=== PATIENT | male | born 1980 | race Caucasian/White ===

== ENCOUNTER 2017-02-10 13:26 | Inpatient (IN) | payer OTHER ==
[2017-02-10 18:24] VITALS: BMI 31.6
--- NOTE | 2017-02-10 20:26 | HP ---
CIWA Score - CIWA Score Nausea/Vomitin-Mild Nausea/No Vomiting Muscle Tremors: 3 Anxiety: 4-Mod. Anxious/Guarded Agitation: 4-Moderately Restless Paroxysmal Sweats: 3 Orientation: 1-Uncertain about Date Tacttile Disturbances: 0-None Auditory Disturbances: 2-Mild Harshness/Frighten Visual Disturbances: 2-Mild Sensitivity Headache: 3-Moderate CIWA-Ar Total Score: 23 Admission ROS BHS - HPI Chief Complaint: C/O WITHDRAWAL SX'S;SEEKING DETOX TXMENT Allergies/Adverse Reactions: Allergies Allergy/AdvReac Type Severity Reaction Status Date / Time No Known Allergies Allergy Verified 02/10/17 19:53 History of Present Illness: 36 Y.O. MALE WITH ALCOHOLISM AND COCAINE DEPENDENCE HERE FOR DETOX TXMNET. THIS IS CLIENTS FIRST TIME HERE. DENIES RECENT DETOX/ REHAB SERVICES.DENIES ANY SIGNIFICANT CLEAN TIME Exam Limitations: No Limitations - Ebola screening Have you traveled outside of the country in the last 21 days: No Have you had contact with anyone from an Ebola affected area: No Have you been sick,other than usual withdrawal symptoms: No Do you have a fever: No - Review of Systems Constitutional: Chills, Loss of Appetite, Night Sweats, Changes in sleep EENT: reports: Dental Problems (DENTAL CARIIES) Respiratory: reports: Shortness of Breath, Other (H/O ASTHMA) Cardiac: reports: No Symptoms Reported GI: reports: Diarrhea, Nausea : reports: Other (HESITANCY) Musculoskeletal: reports: Neck Pain Integumentary: reports: No Symptoms Reported Neuro: reports: No Symptoms reported Endocrine: reports: No Symptoms Reported Hematology: reports: No Symptoms Reported Psychiatric: reports: Anxious Other Systems: Reviewed and Negative Patient History - Patient Medical History Hx Asthma: Yes (ADVAIR) Hx Chronic Obstructive Pulmonary Disease (COPD): No Hx Cancer: No Hx Cardiac Disorders: No Hx Congestive Heart Failure: No Hx Hypertension: No Hx Hypercholesterolemia: No Hx Pacemaker: No HX Cerebrovascular Accident: No Hx Seizures: No Hx Dementia: No Hx Diabetes: No Hx Gastrointestinal Disorders: No Hx Liver Disease: No Hx Genitourinary Disorders: No Hx Sexually Transmitted Disorders: No Hx Renal Disease (ESRD): No Hx Thyroid Disease: No Hx Human Immunodeficiency Virus (HIV): No Hx Hepatitis C: No Hx Depression: No Hx Suicide Attempt: No Hx Bipolar Disorder: No Hx Schizophrenia: No Other Medical History: DENIES - Patient Surgical History Past Surgical History: No Hx Neurologic Surgery: No Hx Cataract Extraction: No Hx Cardiac Surgery: No Hx Lung Surgery: No Hx Breast Surgery: No Hx Breast Biopsy: No Hx Abdominal Surgery: No Hx Appendectomy: No Hx Cholecystectomy: No Hx Genitourinary Surgery: No Hx Section: No Hx Orthopedic Surgery: No Anesthesia Reaction: No - PPD History Previous Implant?: Yes Documented Results: Negative w/o proof PPD to be Administered?: Yes - Smoking Cessation Smoking history: Current every day smoker Have you smoked in the past 12 months: Yes Aproximately how many cigarettes per day: 20 Hx Chewing Tobacco Use: No Initiated information on smoking cessation: Yes 'Breaking Loose' booklet given: 02/10/17 - Substance & Tx. History Hx Alcohol Use: Yes Hx Substance Use: Yes Substance Use Type: Alcohol, Cocaine Hx Substance Use Treatment: Yes ([facility]) - Substances Abused Alcohol Route: Oral Frequency: Daily Amount used: LIQUOR- 1 PINT, BEER- 2 SIX PACKS Age of first use: 16 Date of Last Use: 02/09/17 COCAINE Route: Inhalation Frequency: 1-2 times per week Amount used: 2 BAGS Age of first use: 29 Date of Last Use: 02/09/17 Family Disease History - Family Disease History Family Disease History: Other: Mother (ALCOHOLISM) Admission Physical Exam S - Vital Signs Vital Signs: Vital Signs - 24 hr 02/10/17 18:23 Temperature 98.2 F Pulse Rate 98 H Respiratory 20 Rate Blood Pressure 115/68 - Physical General Appearance: Yes: Disheveled, Mild Distress, Tremorous, Anxious, Other ( MALODUROUS CLIENT NOTED WITH LARGE BREAST. DENIES IMPLANTS, HORMONE THERAPY, TRANSGENDER. STATES HE IS IDENTIFIES A MALE) HEENTM: Yes: EOMI, Normocephalic, LOR, Pharynx Normal, Nasal Congestion Respiratory: Yes: Chest Non-Tender, Lungs Clear, Normal Breath Sounds, No Respiratory Distress, No Accessory Muscle Use Neck: Yes: No masses,lesions,Nodules, Supple, Trachea in good position Breast: Yes: Breast Exam Deferred Cardiology: Yes: Regular Rhythm, Regular Rate, S1, S2 Abdominal: Yes: Normal Bowel Sounds, Non Tender, Soft Genitourinary: Yes: Within Normal Limits Back: Yes: Within Normal Limits Musculoskeletal: Yes: full range of Motion, Gait Steady Extremities: Yes: Normal Capillary Refill, Normal Range of Motion, Non-Tender, Tremors Neurological: Yes: Alert, Motor Strength 5/5 Integumentary: Yes: Normal Color, Warm, Moist Lymphatic: Yes: Within Normal Limits - Diagnostic (1) Asthma Current Visit: Yes Status: Chronic Qualifiers: Asthma severity: mild intermittent Asthma complication type: uncomplicated Qualified Code(s): J45.20 - Mild intermittent asthma, uncomplicated (2) Nicotine dependence Current Visit: Yes Status: Chronic Qualifiers: Nicotine product type: cigarettes Substance use status: uncomplicated Qualified Code(s): F17.210 - Nicotine dependence, cigarettes, uncomplicated (3) Alcohol dependence with uncomplicated withdrawal Current Visit: Yes Status: Chronic (4) Cocaine dependence, uncomplicated Current Visit: Yes Status: Chronic Cleared for Admission [facility] - Detox or Rehab [facility] Level of Care: Medically Managed Detox Regimen/Protocol: Librium [facility] Breath Alcohol Content Breath Alcohol Content: 0 Urine Drug Screen - Results Drug Screen Negative: No Urine Drug Screen Results: JOSE-Cocaine
[2017-02-10] MEDS ORDERED: IBUPROFEN 400 MG TABLET (FP) PO PRN (20:36)
[2017-02-10] MEDS ORDERED: LOPERAMIDE HCL 2 MG CAPSULE PO PRN (20:36)
[2017-02-10] MEDS ORDERED: hydrOXYzine PAMOATE 50 MG CAPSULE (FP) PO PRN (20:36)
[2017-02-10] MEDS ORDERED: MENTHOL/PHENOL 1 EACH UD MM PRN (20:36)
[2017-02-10] MEDS ORDERED: P-EPHED 60MG/TRIPROLIDI 2.5MG TABLET PO PRN (20:36)
[2017-02-10] MEDS ORDERED: ACETAMINOPHEN 325 MG TABLET (FP) PO PRN (20:36)
[2017-02-10] MEDS ORDERED: guaiFENesin/D-METHORPHAN HB 10 ML UNIT-DOSE CUPS PO PRN (20:36)
[2017-02-10] MEDS ORDERED: MAGNESIUM HYDROX 2400MG/30ML ORAL SUSPENSION 30 ML CUP PO PRN (20:36)
[2017-02-10] MEDS ORDERED: MAGNESIUM CITRATE 300 ML BOTTLE PO PRN (20:36)
[2017-02-10] MEDS ORDERED: NICOTINE POLACRILEX 2 MG GUM BC PRN (20:36)
[2017-02-10] MEDS ORDERED: chlordiazePOXIDE HCL 25 MG CAPSULE PO PRN (20:36)
[2017-02-10] MEDS ORDERED: diphenhydrAMINE HCL 50 MG CAPSULE PO PRN (20:36)
[2017-02-10] MEDS ORDERED: MAG HYDROX/AL HYDROX/SIMETH 30 ML UNIT-DOSE CUP PO PRN (20:36)
[2017-02-10] MEDS ORDERED: ALBUTEROL SO4 2.5/IPRATROPIUM 0.5 INH SOL 3 ML VIAL.NEB. NEB PRN (20:37)
[2017-02-10] MEDS: chlordiazePOXIDE HCL 25 MG CAPSULE PO SCH (22:03)
[2017-02-10] MEDS: THIAMINE HCL 100 MG TABLET (FP) PO SCH (22:54)
[2017-02-10] MEDS: NICOTINE 21 MG/24 HOURS TOPICAL PATCH TD SCH (22:56)
[2017-02-11] MEDS: chlordiazePOXIDE HCL 25 MG CAPSULE PO SCH ×4 (07:05→23:16)
[2017-02-11 10:13] LABS: MCHC 32.9 g/dl (32.0-35.9); MEAN CELL VOLUME 91.1 fl (80-96); MEAN PLT VOLUME 10.9 fl (7.5-11.1); PLATELET COUNT 198 K/MM3 (134-434); RDW 12.6 % (11.9-15.9); WHITE BLOOD COUNT 8.6 K/mm3 (4.0-10.0)
[2017-02-11 10:48] LABS: ALBUMIN 3.1 g/dl (3.4-5.0); ALK PHOS 51 U/L (45-117); ANION GAP 8 (8-16); BILIRUBIN,TOTAL 0.5 mg/dL (0.2-1.0); CALCIUM 8.2 mg/dL (8.5-10.1); CO2 26 mmol/L (21-32); COCKROFT - GAULT 159.62; GLUCOSE,RANDOM 123 mg/dL (74-106); SGOT/AST 14 U/L (15-37); SGPT/ALT 22 U/L (12-78); TOT PROT 5.9 g/dl (6.4-8.2)
--- NOTE | 2017-02-11 12:19 | EKG ---
Test Reason : Blood Pressure : / mmHG Vent. Rate : 083 BPM Atrial Rate : 083 BPM P-R Int : 168 ms QRS Dur : 078 ms QT Int : 358 ms P-R-T Axes : 069 062 068 degrees QTc Int : 420 ms NORMAL SINUS RHYTHM NORMAL ECG NO PREVIOUS ECGS AVAILABLE Confirmed by MD HUSSEIN, LISA ([id number]) on 02/11/2017 12:18:48 PM Referred By: Confirmed By:LISA SAVAGE MD
[2017-02-11] MEDS: PRENATAL VITAMINS W/ FOLIC ACID TABLET (FP) PO SCH (12:25)
[2017-02-11] MEDS: NICOTINE 21 MG/24 HOURS TOPICAL PATCH TD SCH (12:26)
--- NOTE | 2017-02-11 12:31 | PN ---
S CIWA - CIWA Score Nausea/Vomitin Muscle Tremors: 3 Anxiety: 3 Agitation: 3 Paroxysmal Sweats: 2 Orientation: 0-Oriented Tacttile Disturbances: 1-Very Mild Itch/Numbness Auditory Disturbances: 1-Very Mild Visual Disturbances: 1-Very Mild Sensitivity Headache: 2-Mild CIWA-Ar Total Score: 19 S Progress Note (SOAP) Subjective: ALERT,IRRITABLE,ANXIOUS,INTERRUPTED SLEEP,TREMOR,PAIN IN THE BODY AND BACK Objective: 02/11/17 12:29 Vital Signs Temperature 97.9 F 02/11/17 06:00 Pulse Rate 66 02/11/17 06:00 Respiratory Rate 18 02/11/17 06:00 Blood Pressure 104/60 02/11/17 06:00 O2 Sat by Pulse Oximetry (%) EKG NSR,NORMAL ECG Vital Signs Temperature 97.9 F 02/11/17 06:00 Pulse Rate 66 02/11/17 06:00 Respiratory Rate 18 02/11/17 06:00 Blood Pressure 104/60 02/11/17 06:00 O2 Sat by Pulse Oximetry (%) 02/11/17 12:30 Laboratory Last Values WBC 8.6 K/mm3 (4.0-10.0) 02/11/17 07:50 RBC 4.22 M/mm3 (4.00-5.60) 02/11/17 07:50 Hgb 12.7 GM/dL (11.7-16.9) 02/11/17 07:50 Hct 38.5 % (35.4-49) 02/11/17 07:50 MCV 91.1 fl (80-96) 02/11/17 07:50 MCHC 32.9 g/dl (32.0-35.9) 02/11/17 07:50 RDW 12.6 % (11.9-15.9) 02/11/17 07:50 Plt Count 198 K/MM3 (134-434) 02/11/17 07:50 MPV 10.9 fl (7.5-11.1) 02/11/17 07:50 Sodium 145 mmol/L (136-145) 02/11/17 08:50 Potassium 4.0 mmol/L (3.5-5.1) 02/11/17 08:50 Chloride 111 mmol/L (98-107) H 02/11/17 08:50 Carbon Dioxide 26 mmol/L (21-32) 02/11/17 08:50 Anion Gap 8 (8-16) 02/11/17 08:50 BUN 19 mg/dL (7-18) H 02/11/17 08:50 Creatinine 1.0 mg/dL (0.7-1.3) 02/11/17 08:50 Creat Clearance w eGFR > 60 (>60) 02/11/17 08:50 Random Glucose 123 mg/dL (74-106) H 02/11/17 08:50 Calcium 8.2 mg/dL (8.5-10.1) L 02/11/17 08:50 Total Bilirubin 0.5 mg/dL (0.2-1.0) 02/11/17 08:50 AST 14 U/L (15-37) L 02/11/17 08:50 ALT 22 U/L (12-78) 02/11/17 08:50 Alkaline Phosphatase 51 U/L (45-117) 02/11/17 08:50 Total Protein 5.9 g/dl (6.4-8.2) L 02/11/17 08:50 Albumin 3.1 g/dl (3.4-5.0) L 02/11/17 08:50 RPR Titer Nonreactive (NONREACTIVE) 02/11/17 07:50 Assessment: 02/11/17 12:30 WITHDRAWAL SYMPTOM Plan: CONTINUE DETOX,FASTING BLOOD GLUCOSE IN AM
[2017-02-11] MEDS: THIAMINE HCL 100 MG TABLET (FP) PO SCH (23:16)
[2017-02-12] MEDS: chlordiazePOXIDE HCL 25 MG CAPSULE PO SCH ×3 (07:04→18:46)
[2017-02-12 10:21] LABS: URINE APPEARANCE CLEAR; URINE BILIRUBIN NEGATIVE (NEGATIVE); URINE BLOOD NEGATIVE (NEGATIVE); URINE COLOR STRAW; URINE GLUCOSE (UA) 2+ (NEGATIVE); URINE KETONE NEGATIVE (NEGATIVE); URINE LEUK ESTERASE NEGATIVE (NEGATIVE); URINE NITRITE NEGATIVE (NEGATIVE); URINE PROTEIN NEGATIVE (NEGATIVE); URINE UROBILINOGEN NEGATIVE E.U./dl (0.2-1.0)
[2017-02-12] MEDS: NICOTINE 21 MG/24 HOURS TOPICAL PATCH TD SCH (11:13)
[2017-02-12] MEDS: PRENATAL VITAMINS W/ FOLIC ACID TABLET (FP) PO SCH (11:14)
[2017-02-12 11:28] LABS: HIV 1 & 2 AB NEGATIVE; HIV 1 AGp24 NEGATIVE
--- NOTE | 2017-02-12 11:31 | PN ---
S CIWA - CIWA Score Nausea/Vomitin Muscle Tremors: 3 Anxiety: 2 Agitation: 2 Paroxysmal Sweats: 1-Minimal Palms Moist Orientation: 0-Oriented Tacttile Disturbances: 1-Very Mild Itch/Numbness Auditory Disturbances: 1-Very Mild Visual Disturbances: 1-Very Mild Sensitivity Headache: 2-Mild CIWA-Ar Total Score: 16 S Progress Note (SOAP) Subjective: ALERT,IRRITABLE,ANXIOUS,INTERRUPTED SLEEP,TREMOR Objective: 02/12/17 11:29 Vital Signs Temperature 97.9 F 02/12/17 09:36 Pulse Rate 69 02/12/17 09:36 Respiratory Rate 18 02/12/17 09:36 Blood Pressure 131/76 02/12/17 09:36 O2 Sat by Pulse Oximetry (%) 02/12/17 11:30 Laboratory Last Values WBC 8.6 K/mm3 (4.0-10.0) 02/11/17 07:50 RBC 4.22 M/mm3 (4.00-5.60) 02/11/17 07:50 Hgb 12.7 GM/dL (11.7-16.9) 02/11/17 07:50 Hct 38.5 % (35.4-49) 02/11/17 07:50 MCV 91.1 fl (80-96) 02/11/17 07:50 MCHC 32.9 g/dl (32.0-35.9) 02/11/17 07:50 RDW 12.6 % (11.9-15.9) 02/11/17 07:50 Plt Count 198 K/MM3 (134-434) 02/11/17 07:50 MPV 10.9 fl (7.5-11.1) 02/11/17 07:50 Sodium 145 mmol/L (136-145) 02/11/17 08:50 Potassium 4.0 mmol/L (3.5-5.1) 02/11/17 08:50 Chloride 111 mmol/L (98-107) H 02/11/17 08:50 Carbon Dioxide 26 mmol/L (21-32) 02/11/17 08:50 Anion Gap 8 (8-16) 02/11/17 08:50 BUN 19 mg/dL (7-18) H 02/11/17 08:50 Creatinine 1.0 mg/dL (0.7-1.3) 02/11/17 08:50 Creat Clearance w eGFR > 60 (>60) 02/11/17 08:50 Random Glucose 123 mg/dL (74-106) H 02/11/17 08:50 Fasting Glucose 114 mg/dL (70-105) H 02/12/17 07:40 Calcium 8.2 mg/dL (8.5-10.1) L 02/11/17 08:50 Total Bilirubin 0.5 mg/dL (0.2-1.0) 02/11/17 08:50 AST 14 U/L (15-37) L 02/11/17 08:50 ALT 22 U/L (12-78) 02/11/17 08:50 Alkaline Phosphatase 51 U/L (45-117) 02/11/17 08:50 Total Protein 5.9 g/dl (6.4-8.2) L 02/11/17 08:50 Albumin 3.1 g/dl (3.4-5.0) L 02/11/17 08:50 Urine Color Straw 02/12/17 07:40 Urine Appearance Clear 02/12/17 07:40 Urine pH 6.0 (5.0-8.0) 02/12/17 07:40 Urine Protein Negative (NEGATIVE) 02/12/17 07:40 Urine Glucose (UA) 2+ (NEGATIVE) H 02/12/17 07:40 Urine Ketones Negative (NEGATIVE) 02/12/17 07:40 Urine Blood Negative (NEGATIVE) 02/12/17 07:40 Urine Nitrite Negative (NEGATIVE) 02/12/17 07:40 Urine Bilirubin Negative (NEGATIVE) 02/12/17 07:40 Urine Urobilinogen Negative E.U./dl (0.2-1.0) 02/12/17 07:40 Ur Leukocyte Esterase Negative (NEGATIVE) 02/12/17 07:40 RPR Titer Nonreactive (NONREACTIVE) 02/11/17 07:50 HIV 1&2 Antibody Screen Negative 02/12/17 07:40 HIV P24 Antigen Negative 02/12/17 07:40 Assessment: 02/12/17 11:30 WITHDRAWAL SYMPTOM Plan: CONTINUE DETOX
[2017-02-12] MEDS: THIAMINE HCL 100 MG TABLET (FP) PO SCH (22:41)
[2017-02-12] MEDS: chlordiazePOXIDE 5 MG CAPSULE PO SCH (22:43)
[2017-02-13] MEDS: chlordiazePOXIDE 5 MG CAPSULE PO SCH ×3 (06:30→17:39)
[2017-02-13] MEDS: NICOTINE 21 MG/24 HOURS TOPICAL PATCH TD SCH (10:16)
[2017-02-13] MEDS: PRENATAL VITAMINS W/ FOLIC ACID TABLET (FP) PO SCH (10:16)
--- NOTE | 2017-02-13 11:11 | PN ---
S Progress Note (SOAP) Subjective: ALERT,IRRITABLE,ANXIOUS,,INTERRUPTED SLEEP Objective: 02/13/17 11:09 Vital Signs Temperature 96.6 F L 02/13/17 09:53 Pulse Rate 70 02/13/17 09:53 Respiratory Rate 16 02/13/17 09:53 Blood Pressure 108/65 02/13/17 09:53 O2 Sat by Pulse Oximetry (%) 02/13/17 11:10 Laboratory Last Values WBC 8.6 K/mm3 (4.0-10.0) 02/11/17 07:50 RBC 4.22 M/mm3 (4.00-5.60) 02/11/17 07:50 Hgb 12.7 GM/dL (11.7-16.9) 02/11/17 07:50 Hct 38.5 % (35.4-49) 02/11/17 07:50 MCV 91.1 fl (80-96) 02/11/17 07:50 MCHC 32.9 g/dl (32.0-35.9) 02/11/17 07:50 RDW 12.6 % (11.9-15.9) 02/11/17 07:50 Plt Count 198 K/MM3 (134-434) 02/11/17 07:50 MPV 10.9 fl (7.5-11.1) 02/11/17 07:50 Sodium 145 mmol/L (136-145) 02/11/17 08:50 Potassium 4.0 mmol/L (3.5-5.1) 02/11/17 08:50 Chloride 111 mmol/L (98-107) H 02/11/17 08:50 Carbon Dioxide 26 mmol/L (21-32) 02/11/17 08:50 Anion Gap 8 (8-16) 02/11/17 08:50 BUN 19 mg/dL (7-18) H 02/11/17 08:50 Creatinine 1.0 mg/dL (0.7-1.3) 02/11/17 08:50 Creat Clearance w eGFR > 60 (>60) 02/11/17 08:50 Random Glucose 123 mg/dL (74-106) H 02/11/17 08:50 Fasting Glucose 114 mg/dL (70-105) H 02/12/17 07:40 Calcium 8.2 mg/dL (8.5-10.1) L 02/11/17 08:50 Total Bilirubin 0.5 mg/dL (0.2-1.0) 02/11/17 08:50 AST 14 U/L (15-37) L 02/11/17 08:50 ALT 22 U/L (12-78) 02/11/17 08:50 Alkaline Phosphatase 51 U/L (45-117) 02/11/17 08:50 Total Protein 5.9 g/dl (6.4-8.2) L 02/11/17 08:50 Albumin 3.1 g/dl (3.4-5.0) L 02/11/17 08:50 Urine Color Straw 02/12/17 07:40 Urine Appearance Clear 02/12/17 07:40 Urine pH 6.0 (5.0-8.0) 02/12/17 07:40 Ur Specific Era 1.015 (1.005-1.025) 02/12/17 07:40 Urine Protein Negative (NEGATIVE) 02/12/17 07:40 Urine Glucose (UA) 2+ (NEGATIVE) H 02/12/17 07:40 Urine Ketones Negative (NEGATIVE) 02/12/17 07:40 Urine Blood Negative (NEGATIVE) 02/12/17 07:40 Urine Nitrite Negative (NEGATIVE) 02/12/17 07:40 Urine Bilirubin Negative (NEGATIVE) 02/12/17 07:40 Urine Urobilinogen Negative E.U./dl (0.2-1.0) 02/12/17 07:40 Ur Leukocyte Esterase Negative (NEGATIVE) 02/12/17 07:40 RPR Titer Nonreactive (NONREACTIVE) 02/11/17 07:50 HIV 1&2 Antibody Screen Negative 02/12/17 07:40 HIV P24 Antigen Negative 02/12/17 07:40 Assessment: 02/13/17 11:10 WITHDRAWAL SYMPTOM Plan: CONTINUE DETOX
[2017-02-13] MEDS ORDERED: chlordiazePOXIDE 5 MG CAPSULE ONE (21:32)
[2017-02-13] MEDS: THIAMINE HCL 100 MG TABLET (FP) PO SCH (22:23)
[2017-02-13] MEDS: chlordiazePOXIDE HCL 10 MG CAPSULE PO SCH (22:23)
[2017-02-14] MEDS: chlordiazePOXIDE HCL 10 MG CAPSULE PO SCH (06:13)
--- NOTE | 2017-02-14 09:10 | PN ---
S Progress Note (SOAP) Subjective: ALERT,NO COMPLAINT Objective: 02/14/17 09:09 02/14/17 09:09 Vital Signs Temperature 95.9 F L 02/14/17 06:23 Pulse Rate 70 02/14/17 06:23 Respiratory Rate 18 02/14/17 06:23 Blood Pressure 95/56 02/14/17 06:23 O2 Sat by Pulse Oximetry (%) Assessment: 02/14/17 09:09 DETOX COMPLETED,NO WITHDRAWAL SYMPTOM Plan: DISCHARGE TODAY,FOLLOW UP WITH AFTER CARE PROGRAM ARRANGEMENT
--- NOTE | 2017-02-14 09:13 | DS ---
[facility] Detox Discharge Summary Admission Date: 02/10/17 Discharge Date: 02/14/17 - History Present History: Alcohol Dependence, Cocaine Dependence Additional Comments: FOLLOW UP WITH AFTER CARE PROGRAM ARRANGEMENT Pertinent Past History: ASTHMA NICOTINE DEPENDENCE - Physical Exam Results Vital Signs: Vital Signs Temperature 95.9 F L 02/14/17 06:23 Pulse Rate 70 02/14/17 06:23 Respiratory Rate 18 02/14/17 06:23 Blood Pressure 95/56 02/14/17 06:23 O2 Sat by Pulse Oximetry (%) Pertinent Admission Physical Exam Findings: WITHDRAWAL SYMPTOM - Treatment Hospital Course: Detox Protocol Followed, Detoxed Safely, Responded well, Discharged Condition Good, Rehab Referral Accepted Patient has Accepted a Rehab Referral to: [facility] - Medication Discharge Medications: Ambulatory Orders NK [No Known Home Medication] 02/10/17 - AMA Did Patient Leave Against Medical Advice: No
[2017-02-14] MEDS ORDERED: ALBUTEROL SO4 6.7 GM HFA INHALER IH PRN (09:14)
[2017-02-14] MEDS ORDERED: ALBUTEROL SO4 6.7 GM HFA INHALER IH ONE (09:57)
[2017-02-14 10:21] VITALS: BP 154/92; PULSE 76; TEMP 99.1
== END 2017-02-14 10:13 | disposition home or self-care (01) | DRG 774 ==
LOC: YASAS 13:26 → Y6N 19:37
PROVIDERS: ADMIT Internal Medicine; ATTEND Internal Medicine
PROC: HZ2ZZZZ Detoxification Services for Substance Abuse Treatment (ICD-10-PCS; principal; 2017-02-10)
DX: F10.230 Alcohol dependence with withdrawal, uncomplicated (principal); F14.20 Cocaine dependence, uncomplicated; F17.210 Nicotine dependence, cigarettes, uncomplicated; J45.20 Mild intermittent asthma, uncomplicated
CPT/HCPCS: 36415; 80053; 81003; 82947; 85027; 86593; 86803; 87389; 93005; 93010

== ENCOUNTER 2017-06-05 15:36 | Inpatient (IN) | payer OTHER ==
[2017-06-05 17:27] VITALS: BMI 31.0
--- NOTE | 2017-06-05 17:57 | HP ---
CIWA Score - CIWA Score Nausea/Vomitin-Mild Nausea/No Vomiting Muscle Tremors: 4-Moderate,w/Arms Extend Anxiety: 4-Mod. Anxious/Guarded Agitation: 4-Moderately Restless Paroxysmal Sweats: 1-Minimal Palms Moist Orientation: 0-Oriented Tacttile Disturbances: 0-None Auditory Disturbances: 0-None Visual Disturbances: 0-None Headache: 1-Very Mild CIWA-Ar Total Score: 15 Admission ROS BHS - HPI Chief Complaint: WITHDRAWAL SX Allergies/Adverse Reactions: Allergies Allergy/AdvReac Type Severity Reaction Status Date / Time No Known Allergies Allergy Verified 02/10/17 19:53 History of Present Illness: 37 YEARS OLD MALE WITH LONG HISTORY OF ALCOHOL COCAINE MARIJUANA NICOTINE DEPENDENCE ASTHMA DENIES MENTAL ILLNESS REFUSES DISCUSS PSYCHOLOGICAL ISSUE WITH PSYCHIATRIST IS ADMITTED TO DETOX LEFT 5TH TOE NAIL INJURY 05/31/17, TREATED AT [place] [facility] DISCHARGE WITH MOTRIN PRN, DENIES PAIN, "THEY GAVE ME A LITTLE BANDAGE. LEFT TOE NO SWELL, NO ERYTHEMA, AMBULATE STEADY GAIT, Exam Limitations: No Limitations - Ebola screening Have you traveled outside of the country in the last 21 days: No Have you had contact with anyone from an Ebola affected area: No Have you been sick,other than usual withdrawal symptoms: No Do you have a fever: No - Review of Systems Constitutional: Changes in sleep, Weight Stable EENT: reports: No Symptoms Reported Respiratory: reports: SOB with Exertion Cardiac: reports: No Symptoms Reported GI: reports: Nausea, Poor Fluid Intake, Indigestion, Abdominal cramping : reports: No Symptoms Reported Musculoskeletal: reports: No Symptoms Reported Integumentary: reports: No Symptoms Reported Neuro: reports: Tremors Endocrine: reports: No Symptoms Reported Hematology: reports: No Symptoms Reported Psychiatric: reports: Judgement Intact, Mood/Affect Appropiate, Orientated x3 Other Systems: Reviewed and Negative Patient History - Patient Medical History Hx Anemia: No Hx Asthma: Yes (ADVAIR) Hx Chronic Obstructive Pulmonary Disease (COPD): No Hx Cancer: No Hx Cardiac Disorders: No Hx Congestive Heart Failure: No Hx Hypertension: No Hx Hypercholesterolemia: No Hx Pacemaker: No HX Cerebrovascular Accident: No Hx Seizures: No Hx Dementia: No Hx Diabetes: No Hx Gastrointestinal Disorders: No Hx Liver Disease: No Hx Genitourinary Disorders: No Hx Sexually Transmitted Disorders: No Hx Renal Disease (ESRD): No Hx Thyroid Disease: No Hx Human Immunodeficiency Virus (HIV): No Hx Hepatitis C: No Hx Depression: No Hx Suicide Attempt: No Hx Bipolar Disorder: No Hx Schizophrenia: No - Patient Surgical History Past Surgical History: No Hx Neurologic Surgery: No Hx Cataract Extraction: No Hx Cardiac Surgery: No Hx Lung Surgery: No Hx Breast Surgery: No Hx Breast Biopsy: No Hx Abdominal Surgery: No Hx Appendectomy: No Hx Cholecystectomy: No Hx Genitourinary Surgery: No Hx Orthopedic Surgery: No - PPD History Previous Implant?: Yes Documented Results: Negative w/o proof Implanted On Prior R Admission?: Yes Date: 02/12/17 PPD to be Administered?: No - Smoking Cessation Smoking history: Current every day smoker Have you smoked in the past 12 months: Yes Aproximately how many cigarettes per day: 20 Cigars Per Day: 0 Hx Chewing Tobacco Use: No Initiated information on smoking cessation: Yes 'Breaking Loose' booklet given: 06/05/17 - Substance & Tx. History Hx Alcohol Use: Yes Hx Substance Use: Yes Substance Use Type: Alcohol, Cocaine, Marijuana Hx Substance Use Treatment: Yes (02/10/02/14/17 [facility] - Substances Abused Alcohol Route: Oral Frequency: Daily Amount used: VOLKA LIT Age of first use: 16 Date of Last Use: 06/05/17 Family Disease History - Family Disease History Family Disease History: Other: Mother (ALCOHOLISM) Admission Physical Exam BHS - Vital Signs Vital Signs: Vital Signs - 24 hr 06/05/17 17:21 Temperature 98.8 F Pulse Rate 74 Respiratory 20 Rate Blood Pressure 125/72 - Physical General Appearance: Yes: Appropriately Dressed, Mild Distress, Obese HEENTM: Yes: Hearing grossly Normal, Normal ENT Inspection, Normocephalic, Normal Voice Respiratory: Yes: Chest Non-Tender, No Respiratory Distress, No Accessory Muscle Use Neck: Yes: Supple, Trachea in good position Breast: Yes: Breasts Symetrical Cardiology: Yes: Regular Rhythm, Regular Rate, S1, S2 Abdominal: Yes: Non Tender, Soft Genitourinary: Yes: Within Normal Limits Back: Yes: Normal Inspection Musculoskeletal: Yes: full range of Motion, Gait Steady, Other (LEFT 5TH TOE S/ P NAIL INJURY TREATED AT [place]) Extremities: Yes: Non-Tender Neurological: Yes: Fully Oriented, Alert, Motor Strength 5/5, Normal Mood/Affect , Normal Response Integumentary: Yes: Warm, Other (REPORTS LEFT 5TH TOE NAIL INJURY 05/31/17, TREATED AT [place]) Lymphatic: Yes: Within Normal Limits - Diagnostic (1) Alcohol dependence with uncomplicated withdrawal Current Visit: Yes Status: Acute (2) Cocaine dependence, uncomplicated Current Visit: Yes Status: Chronic (3) Nicotine dependence Current Visit: Yes Status: Acute Qualifiers: Nicotine product type: cigarettes Substance use status: in withdrawal Qualified Code(s): F17.213 - Nicotine dependence, cigarettes, with withdrawal (4) Cannabis dependence, uncomplicated Current Visit: Yes Status: Chronic BHS Breath Alcohol Content Breath Alcohol Content: 0 Urine Drug Screen - Results Drug Screen Negative: No Urine Drug Screen Results: THC-Marijuana, JOSE-Cocaine
[2017-06-05] MEDS ORDERED: diphenhydrAMINE HCL 50 MG CAPSULE PO PRN (17:59)
[2017-06-05] MEDS ORDERED: chlordiazePOXIDE HCL 25 MG CAPSULE PO PRN (17:59)
[2017-06-05] MEDS ORDERED: hydrOXYzine PAMOATE 50 MG CAPSULE (FP) PO PRN (17:59)
[2017-06-05] MEDS ORDERED: MAG HYDROX/AL HYDROX/SIMETH 30 ML UNIT-DOSE CUP PO PRN (17:59)
[2017-06-05] MEDS ORDERED: MENTHOL/PHENOL 1 EACH UD MM PRN (17:59)
[2017-06-05] MEDS ORDERED: NICOTINE POLACRILEX 4 MG GUM BUC PRN (17:59)
[2017-06-05] MEDS ORDERED: MAGNESIUM HYDROX 2400MG/30ML ORAL SUSPENSION 30 ML CUP PO PRN (17:59)
[2017-06-05] MEDS ORDERED: MAGNESIUM CITRATE 300 ML BOTTLE PO PRN (17:59)
[2017-06-05] MEDS ORDERED: ACETAMINOPHEN 325 MG TABLET (FP) PO PRN (17:59)
[2017-06-05] MEDS ORDERED: P-EPHED 60MG/TRIPROLIDI 2.5MG TABLET PO PRN (17:59)
[2017-06-05] MEDS ORDERED: LOPERAMIDE HCL 2 MG CAPSULE PO PRN (17:59)
[2017-06-05] MEDS ORDERED: guaiFENesin/D-METHORPHAN HB 10 ML UNIT-DOSE CUPS PO PRN (17:59)
[2017-06-05] MEDS ORDERED: ALBUTEROL SO4 2.5/IPRATROPIUM 0.5 INH SOL 3 ML VIAL.NEB. NEB PRN (18:01)
[2017-06-05] MEDS ORDERED: ALBUTEROL SO4 6.7 GM HFA INHALER IH PRN (18:01)
[2017-06-05] MEDS: chlordiazePOXIDE HCL 25 MG CAPSULE PO SCH (22:31)
[2017-06-05] MEDS: RANITIDINE HCL 150 MG TABLET (FP) PO SCH (22:32)
[2017-06-05] MEDS: THIAMINE HCL 100 MG TABLET (FP) PO SCH (22:32)
[2017-06-05 23:13] LABS: PH,URINE 6.5 (5.0-8.0); URINE APPEARANCE CLEAR; URINE BILIRUBIN NEGATIVE (NEGATIVE); URINE BLOOD NEGATIVE (NEGATIVE); URINE COLOR YELLOW; URINE GLUCOSE (UA) NEGATIVE (NEGATIVE); URINE KETONE NEGATIVE (NEGATIVE); URINE NITRITE NEGATIVE (NEGATIVE); URINE PROTEIN NEGATIVE (NEGATIVE); URINE UROBILINOGEN >=8.0 E.U./dl mg/dL (0.2-1.0)
[2017-06-06] MEDS: chlordiazePOXIDE HCL 25 MG CAPSULE PO SCH ×4 (05:24→22:47)
[2017-06-06 09:49] LABS: MCH 28.5 pg (25.7-33.7); MCHC 32.2 g/dl (32.0-35.9); MEAN CELL VOLUME 88.5 fl (80-96); MEAN PLT VOLUME 11.2 fl (7.5-11.1); PLATELET COUNT 189 K/MM3 (134-434); WHITE BLOOD COUNT 9.4 K/mm3 (4.0-10.0)
[2017-06-06 10:08] LABS: ALBUMIN 3.2 g/dl (3.4-5.0); ALK PHOS 41 U/L (45-117); ANION GAP 7 (8-16); BILIRUBIN,TOTAL 0.4 mg/dL (0.2-1.0); CALCIUM 8.6 mg/dL (8.5-10.1); CO2 26 mmol/L (21-32); GLUCOSE,RANDOM 102 mg/dL (74-106); SGOT/AST 10 U/L (15-37); SGPT/ALT 28 U/L (12-78); TOT PROT 5.9 g/dl (6.4-8.2)
[2017-06-06] MEDS: NICOTINE 21 MG/24 HOURS TOPICAL PATCH TD SCH (10:52)
[2017-06-06] MEDS: PRENATAL VITAMINS W/ FOLIC ACID TABLET (FP) PO SCH (10:52)
[2017-06-06] MEDS: RANITIDINE HCL 150 MG TABLET (FP) PO SCH ×2 (10:52→22:47)
--- NOTE | 2017-06-06 11:53 | PN ---
[facility] CIWA - CIWA Score Nausea/Vomitin-No Nausea/No Vomiting Muscle Tremors: 4-Moderate,w/Arms Extend Anxiety: 4-Mod. Anxious/Guarded Agitation: 4-Moderately Restless Paroxysmal Sweats: 1-Minimal Palms Moist Orientation: 0-Oriented Tacttile Disturbances: 2-Mild Itch/Numbness/Burn Auditory Disturbances: 0-None Visual Disturbances: 0-None Headache: 0-None Present CIWA-Ar Total Score: 15 S Progress Note (SOAP) Subjective: ANXIETY,TREMORS, LACK OF APPETITE. Objective: 06/06/17 11:53 Vital Signs Temperature 96.8 F L 06/06/17 09:14 Pulse Rate 67 06/06/17 09:14 Respiratory Rate 18 06/06/17 09:14 Blood Pressure 124/82 06/06/17 09:14 O2 Sat by Pulse Oximetry (%) Laboratory Last Values WBC 9.4 K/mm3 (4.0-10.0) 06/06/17 07:00 RBC 4.64 M/mm3 (4.00-5.60) 06/06/17 07:00 Hgb 13.2 GM/dL (11.7-16.9) 06/06/17 07:00 Hct 41.1 % (35.4-49) 06/06/17 07:00 MCV 88.5 fl (80-96) 06/06/17 07:00 MCH 28.5 pg (25.7-33.7) 06/06/17 07:00 MCHC 32.2 g/dl (32.0-35.9) 06/06/17 07:00 RDW 13.0 % (11.9-15.9) 06/06/17 07:00 Plt Count 189 K/MM3 (134-434) 06/06/17 07:00 MPV 11.2 fl (7.5-11.1) H 06/06/17 07:00 Sodium 141 mmol/L (136-145) 06/06/17 07:00 Potassium 3.9 mmol/L (3.5-5.1) 06/06/17 07:00 Chloride 108 mmol/L (98-107) H 06/06/17 07:00 Carbon Dioxide 26 mmol/L (21-32) 06/06/17 07:00 Anion Gap 7 (8-16) L 06/06/17 07:00 BUN 22 mg/dL (7-18) H 06/06/17 07:00 Creatinine 1.0 mg/dL (0.7-1.3) 06/06/17 07:00 Creat Clearance w eGFR > 60 (>60) 06/06/17 07:00 Random Glucose 102 mg/dL (74-106) 06/06/17 07:00 Calcium 8.6 mg/dL (8.5-10.1) 06/06/17 07:00 Total Bilirubin 0.4 mg/dL (0.2-1.0) 06/06/17 07:00 AST 10 U/L (15-37) L D 06/06/17 07:00 ALT 28 U/L (12-78) D 06/06/17 07:00 Alkaline Phosphatase 41 U/L (45-117) L 06/06/17 07:00 Total Protein 5.9 g/dl (6.4-8.2) L 06/06/17 07:00 Albumin 3.2 g/dl (3.4-5.0) L 06/06/17 07:00 Urine Color Yellow 06/05/17 18:30 Urine Appearance Clear 06/05/17 18:30 Urine pH 6.5 (5.0-8.0) 06/05/17 18:30 Urine Protein Negative (NEGATIVE) 06/05/17 18:30 Urine Glucose (UA) Negative (NEGATIVE) 06/05/17 18:30 Urine Ketones Negative (NEGATIVE) 06/05/17 18:30 Urine Blood Negative (NEGATIVE) 06/05/17 18:30 Urine Nitrite Negative (NEGATIVE) 06/05/17 18:30 Urine Bilirubin Negative (NEGATIVE) 06/05/17 18:30 Urine Urobilinogen >=8.0 e.u./dl mg/dL (0.2-1.0) 06/05/17 18:30 RPR Titer Nonreactive (NONREACTIVE) 06/06/17 07:00 Assessment: 06/06/17 11:53 WITHDRAWAL SX Plan: CONTINUE DETOX
--- NOTE | 2017-06-06 13:02 | EKG ---
Test Reason : Blood Pressure : / mmHG Vent. Rate : 063 BPM Atrial Rate : 063 BPM P-R Int : 160 ms QRS Dur : 078 ms QT Int : 384 ms P-R-T Axes : 057 050 059 degrees QTc Int : 392 ms NORMAL SINUS RHYTHM WITH SINUS ARRHYTHMIA NORMAL ECG WHEN COMPARED WITH ECG OF 10-FEB-2017 21:15, NO SIGNIFICANT CHANGE WAS FOUND Confirmed by LIYAH ZAVALA MD ([id number]) on 06/06/2017 1:02:23 PM Referred By: Wojciech Blakely Confirmed By:LIYAH ZAVALA MD
[2017-06-06] MEDS: THIAMINE HCL 100 MG TABLET (FP) PO SCH (22:47)
[2017-06-07] MEDS: chlordiazePOXIDE HCL 25 MG CAPSULE PO SCH ×3 (05:31→17:07)
[2017-06-07] MEDS: PRENATAL VITAMINS W/ FOLIC ACID TABLET (FP) PO SCH (10:07)
[2017-06-07] MEDS: NICOTINE 21 MG/24 HOURS TOPICAL PATCH TD SCH (10:07)
[2017-06-07] MEDS: RANITIDINE HCL 150 MG TABLET (FP) PO SCH ×2 (10:07→22:18)
--- NOTE | 2017-06-07 11:06 | PN ---
[facility] CIWA - CIWA Score Nausea/Vomitin-No Nausea/No Vomiting Muscle Tremors: 4-Moderate,w/Arms Extend Anxiety: 4-Mod. Anxious/Guarded Agitation: 4-Moderately Restless Paroxysmal Sweats: 1-Minimal Palms Moist Orientation: 0-Oriented Tacttile Disturbances: 3-Moderate Itch/Numb/Burn Auditory Disturbances: 0-None Visual Disturbances: 0-None Headache: 0-None Present CIWA-Ar Total Score: 16 S Progress Note (SOAP) Subjective: DECREASE ANXIETY,SWEATS,TREMORS. ALERT O X 3, NAD. Objective: 06/07/17 11:06 Vital Signs Temperature 98.7 F 06/07/17 09:55 Pulse Rate 69 06/07/17 09:55 Respiratory Rate 20 06/07/17 09:55 Blood Pressure 132/78 06/07/17 09:55 O2 Sat by Pulse Oximetry (%) Laboratory Last Values WBC 9.4 K/mm3 (4.0-10.0) 06/06/17 07:00 RBC 4.64 M/mm3 (4.00-5.60) 06/06/17 07:00 Hgb 13.2 GM/dL (11.7-16.9) 06/06/17 07:00 Hct 41.1 % (35.4-49) 06/06/17 07:00 MCV 88.5 fl (80-96) 06/06/17 07:00 MCH 28.5 pg (25.7-33.7) 06/06/17 07:00 MCHC 32.2 g/dl (32.0-35.9) 06/06/17 07:00 RDW 13.0 % (11.9-15.9) 06/06/17 07:00 Plt Count 189 K/MM3 (134-434) 06/06/17 07:00 MPV 11.2 fl (7.5-11.1) H 06/06/17 07:00 Sodium 141 mmol/L (136-145) 06/06/17 07:00 Potassium 3.9 mmol/L (3.5-5.1) 06/06/17 07:00 Chloride 108 mmol/L (98-107) H 06/06/17 07:00 Carbon Dioxide 26 mmol/L (21-32) 06/06/17 07:00 Anion Gap 7 (8-16) L 06/06/17 07:00 BUN 22 mg/dL (7-18) H 06/06/17 07:00 Creatinine 1.0 mg/dL (0.7-1.3) 06/06/17 07:00 Creat Clearance w eGFR > 60 (>60) 06/06/17 07:00 Random Glucose 102 mg/dL (74-106) 06/06/17 07:00 Calcium 8.6 mg/dL (8.5-10.1) 06/06/17 07:00 Total Bilirubin 0.4 mg/dL (0.2-1.0) 06/06/17 07:00 AST 10 U/L (15-37) L D 06/06/17 07:00 ALT 28 U/L (12-78) D 06/06/17 07:00 Alkaline Phosphatase 41 U/L (45-117) L 06/06/17 07:00 Total Protein 5.9 g/dl (6.4-8.2) L 06/06/17 07:00 Albumin 3.2 g/dl (3.4-5.0) L 06/06/17 07:00 Urine Color Yellow 06/05/17 18:30 Urine Appearance Clear 06/05/17 18:30 Urine pH 6.5 (5.0-8.0) 06/05/17 18:30 Ur Specific [place] 1.025 (1.005-1.025) 06/05/17 18:30 Urine Protein Negative (NEGATIVE) 06/05/17 18:30 Urine Glucose (UA) Negative (NEGATIVE) 06/05/17 18:30 Urine Ketones Negative (NEGATIVE) 06/05/17 18:30 Urine Blood Negative (NEGATIVE) 06/05/17 18:30 Urine Nitrite Negative (NEGATIVE) 06/05/17 18:30 Urine Bilirubin Negative (NEGATIVE) 06/05/17 18:30 Urine Urobilinogen >=8.0 e.u./dl mg/dL (0.2-1.0) 06/05/17 18:30 RPR Titer Nonreactive (NONREACTIVE) 06/06/17 07:00 Assessment: 06/07/17 11:06 WITHDRAWAL SX Plan: CONTINUE DETOX
[2017-06-07] MEDS: chlordiazePOXIDE 5 MG CAPSULE PO SCH (22:18)
[2017-06-07] MEDS: THIAMINE HCL 100 MG TABLET (FP) PO SCH (22:18)
[2017-06-08] MEDS: chlordiazePOXIDE 5 MG CAPSULE PO SCH ×3 (05:29→17:18)
[2017-06-08] MEDS: PRENATAL VITAMINS W/ FOLIC ACID TABLET (FP) PO SCH (10:12)
[2017-06-08] MEDS: NICOTINE 21 MG/24 HOURS TOPICAL PATCH TD SCH (10:12)
[2017-06-08] MEDS: RANITIDINE HCL 150 MG TABLET (FP) PO SCH ×2 (10:12→22:14)
--- NOTE | 2017-06-08 11:02 | PN ---
[facility] Progress Note (SOAP) Subjective: SLIGHT ANXIETY,SWEATS, TREMORS. Objective: 06/08/17 11:02 Vital Signs Temperature 96.8 F L 06/08/17 09:55 Pulse Rate 74 06/08/17 09:55 Respiratory Rate 18 06/08/17 09:55 Blood Pressure 117/77 06/08/17 09:55 O2 Sat by Pulse Oximetry (%) Laboratory Last Values WBC 9.4 K/mm3 (4.0-10.0) 06/06/17 07:00 RBC 4.64 M/mm3 (4.00-5.60) 06/06/17 07:00 Hgb 13.2 GM/dL (11.7-16.9) 06/06/17 07:00 Hct 41.1 % (35.4-49) 06/06/17 07:00 MCV 88.5 fl (80-96) 06/06/17 07:00 MCH 28.5 pg (25.7-33.7) 06/06/17 07:00 MCHC 32.2 g/dl (32.0-35.9) 06/06/17 07:00 RDW 13.0 % (11.9-15.9) 06/06/17 07:00 Plt Count 189 K/MM3 (134-434) 06/06/17 07:00 MPV 11.2 fl (7.5-11.1) H 06/06/17 07:00 Sodium 141 mmol/L (136-145) 06/06/17 07:00 Potassium 3.9 mmol/L (3.5-5.1) 06/06/17 07:00 Chloride 108 mmol/L (98-107) H 06/06/17 07:00 Carbon Dioxide 26 mmol/L (21-32) 06/06/17 07:00 Anion Gap 7 (8-16) L 06/06/17 07:00 BUN 22 mg/dL (7-18) H 06/06/17 07:00 Creatinine 1.0 mg/dL (0.7-1.3) 06/06/17 07:00 Creat Clearance w eGFR > 60 (>60) 06/06/17 07:00 Random Glucose 102 mg/dL (74-106) 06/06/17 07:00 Calcium 8.6 mg/dL (8.5-10.1) 06/06/17 07:00 Total Bilirubin 0.4 mg/dL (0.2-1.0) 06/06/17 07:00 AST 10 U/L (15-37) L D 06/06/17 07:00 ALT 28 U/L (12-78) D 06/06/17 07:00 Alkaline Phosphatase 41 U/L (45-117) L 06/06/17 07:00 Total Protein 5.9 g/dl (6.4-8.2) L 06/06/17 07:00 Albumin 3.2 g/dl (3.4-5.0) L 06/06/17 07:00 Urine Color Yellow 06/05/17 18:30 Urine Appearance Clear 06/05/17 18:30 Urine pH 6.5 (5.0-8.0) 06/05/17 18:30 Ur Specific [place] 1.025 (1.005-1.025) 06/05/17 18:30 Urine Protein Negative (NEGATIVE) 06/05/17 18:30 Urine Glucose (UA) Negative (NEGATIVE) 06/05/17 18:30 Urine Ketones Negative (NEGATIVE) 06/05/17 18:30 Urine Blood Negative (NEGATIVE) 06/05/17 18:30 Urine Nitrite Negative (NEGATIVE) 06/05/17 18:30 Urine Bilirubin Negative (NEGATIVE) 06/05/17 18:30 Urine Urobilinogen >=8.0 e.u./dl mg/dL (0.2-1.0) 06/05/17 18:30 RPR Titer Nonreactive (NONREACTIVE) 06/06/17 07:00 Assessment: 06/08/17 11:02 WITHDRAWAL SX Plan: CONTINUE DETOX
[2017-06-08] MEDS: THIAMINE HCL 100 MG TABLET (FP) PO SCH (22:14)
[2017-06-08] MEDS: chlordiazePOXIDE HCL 10 MG CAPSULE PO SCH (22:14)
[2017-06-09] MEDS: chlordiazePOXIDE HCL 10 MG CAPSULE PO SCH ×2 (06:09→10:14)
[2017-06-09 08:47] LABS: HIV 1 & 2 AB NEGATIVE; HIV 1 AGp24 NEGATIVE
[2017-06-09] MEDS: RANITIDINE HCL 150 MG TABLET (FP) PO SCH (10:13)
[2017-06-09] MEDS: PRENATAL VITAMINS W/ FOLIC ACID TABLET (FP) PO SCH (10:13)
[2017-06-09] MEDS: NICOTINE 21 MG/24 HOURS TOPICAL PATCH TD SCH (10:14)
--- NOTE | 2017-06-09 10:25 | PN ---
[facility] Progress Note (SOAP) Subjective: Sweating,interrupted sleep,restless Objective: 06/09/17 10:25 Vital Signs - 8 hr 06/09/17 06:20 Temperature 98 F Pulse Rate 67 Respiratory 18 Rate Blood Pressure 97/57 Laboratory Last Values WBC 9.4 K/mm3 (4.0-10.0) 06/06/17 07:00 RBC 4.64 M/mm3 (4.00-5.60) 06/06/17 07:00 Hgb 13.2 GM/dL (11.7-16.9) 06/06/17 07:00 Hct 41.1 % (35.4-49) 06/06/17 07:00 MCV 88.5 fl (80-96) 06/06/17 07:00 MCH 28.5 pg (25.7-33.7) 06/06/17 07:00 MCHC 32.2 g/dl (32.0-35.9) 06/06/17 07:00 RDW 13.0 % (11.9-15.9) 06/06/17 07:00 Plt Count 189 K/MM3 (134-434) 06/06/17 07:00 MPV 11.2 fl (7.5-11.1) H 06/06/17 07:00 Sodium 138 mmol/L (136-145) 06/09/17 07:50 Potassium 4.2 mmol/L (3.5-5.1) 06/09/17 07:50 Chloride 103 mmol/L (98-107) 06/09/17 07:50 Carbon Dioxide 26 mmol/L (21-32) 06/06/17 07:00 Anion Gap 7 (8-16) L 06/06/17 07:00 BUN 22 mg/dL (7-18) H 06/06/17 07:00 Creatinine 1.0 mg/dL (0.7-1.3) 06/06/17 07:00 Creat Clearance w eGFR > 60 (>60) 06/06/17 07:00 Random Glucose 102 mg/dL (74-106) 06/06/17 07:00 Calcium 8.6 mg/dL (8.5-10.1) 06/06/17 07:00 Total Bilirubin 0.4 mg/dL (0.2-1.0) 06/06/17 07:00 AST 10 U/L (15-37) L D 06/06/17 07:00 ALT 28 U/L (12-78) D 06/06/17 07:00 Alkaline Phosphatase 41 U/L (45-117) L 06/06/17 07:00 Total Protein 5.9 g/dl (6.4-8.2) L 06/06/17 07:00 Albumin 3.2 g/dl (3.4-5.0) L 06/06/17 07:00 Urine Color Yellow 06/05/17 18:30 Urine Appearance Clear 06/05/17 18:30 Urine pH 6.5 (5.0-8.0) 06/05/17 18:30 Ur Specific [place] 1.025 (1.005-1.025) 06/05/17 18:30 Urine Protein Negative (NEGATIVE) 06/05/17 18:30 Urine Glucose (UA) Negative (NEGATIVE) 06/05/17 18:30 Urine Ketones Negative (NEGATIVE) 06/05/17 18:30 Urine Blood Negative (NEGATIVE) 06/05/17 18:30 Urine Nitrite Negative (NEGATIVE) 06/05/17 18:30 Urine Bilirubin Negative (NEGATIVE) 06/05/17 18:30 Urine Urobilinogen >=8.0 e.u./dl mg/dL (0.2-1.0) 06/05/17 18:30 RPR Titer Nonreactive (NONREACTIVE) 06/06/17 07:00 HIV 1&2 Antibody Screen Negative 06/08/17 09:45 HIV P24 Antigen Negative 06/08/17 09:45 labs noted Assessment: 06/09/17 10:25 Withdrawal sx. Plan: Continue detox
[2017-06-09 10:28] VITALS: BP 120/80; PULSE 97; TEMP 97
[2017-06-09 10:29] LABS: ALBUMIN 3.7 g/dl (3.4-5.0); ALK PHOS 48 U/L (45-117); ANION GAP 9 (8-16); BILIRUBIN,TOTAL 0.5 mg/dL (0.2-1.0); CALCIUM 9.2 mg/dL (8.5-10.1); CO2 26 mmol/L (21-32); CREATININE 0.9 mg/dL (0.7-1.3); GLUCOSE,RANDOM 182 mg/dL (74-106); SGOT/AST 14 U/L (15-37); SGPT/ALT 33 U/L (12-78); TOT PROT 6.9 g/dl (6.4-8.2)
--- NOTE | 2017-06-09 12:51 | DS ---
[facility] Detox Discharge Summary Admission Date: 06/05/17 Discharge Date: 06/09/17 - History Present History: Alcohol Dependence, Cannabis Dependence, Cocaine Dependence Pertinent Past History: Asthma - Physical Exam Results Vital Signs: Vital Signs Temperature 97.0 F L 06/09/17 10:27 Pulse Rate 97 H 06/09/17 10:27 Respiratory Rate 20 06/09/17 10:27 Blood Pressure 120/80 06/09/17 10:27 O2 Sat by Pulse Oximetry (%) Pertinent Admission Physical Exam Findings: Withdrawal sx. Laboratory Tests 06/05/17 06/06/17 06/06/17 18:30 07:00 07:00 WBC 9.4 RBC 4.64 Hgb 13.2 Hct 41.1 MCV 88.5 MCH 28.5 MCHC 32.2 RDW 13.0 Plt Count 189 MPV 11.2 H Sodium 141 Potassium 3.9 Chloride 108 H Carbon Dioxide 26 Anion Gap 7 L BUN 22 H Creatinine 1.0 Creat Clearance w eGFR > 60 Random Glucose 102 Calcium 8.6 Total Bilirubin 0.4 AST 10 L D ALT 28 D Alkaline Phosphatase 41 L Total Protein 5.9 L Albumin 3.2 L Urine Color Yellow Urine Appearance Clear Urine pH 6.5 Ur Specific [place] 1.025 Urine Protein Negative Urine Glucose (UA) Negative Urine Ketones Negative Urine Blood Negative Urine Nitrite Negative Urine Bilirubin Negative Urine Urobilinogen >=8.0 e.u./dl RPR Titer HIV 1&2 Antibody Screen HIV P24 Antigen 06/06/17 06/08/17 06/09/17 07:00 09:45 07:50 WBC RBC Hgb Hct MCV MCH MCHC RDW Plt Count MPV Sodium 138 Potassium 4.2 Chloride 103 Carbon Dioxide 26 Anion Gap 9 BUN 14 D Creatinine 0.9 Creat Clearance w eGFR > 60 Random Glucose 182 H D Calcium 9.2 Total Bilirubin 0.5 D AST 14 L D ALT 33 Alkaline Phosphatase 48 Total Protein 6.9 Albumin 3.7 Urine Color Urine Appearance Urine pH Ur Specific [place] Urine Protein Urine Glucose (UA) Urine Ketones Urine Blood Urine Nitrite Urine Bilirubin Urine Urobilinogen RPR Titer Nonreactive HIV 1&2 Antibody Screen Negative HIV P24 Antigen Negative labs noted - Treatment Hospital Course: Detox Protocol Followed, Detoxed Safely, Responded well, Discharged Condition Good, Rehab Referral Accepted Patient has Accepted a Rehab Referral to: [facility] - Medication Discharge Medications: Ambulatory Orders Salmeterol/Fluticasone [Advair 250Mcg/50Mcg] 1 inh PO BID 06/05/17 - Diagnosis (1) Alcohol dependence with uncomplicated withdrawal Current Visit: Yes Status: Acute (2) Cannabis dependence, uncomplicated Current Visit: Yes Status: Acute (3) Cocaine dependence, uncomplicated Current Visit: Yes Status: Acute (4) Nicotine dependence Current Visit: Yes Status: Acute Qualifiers: Nicotine product type: cigarettes Substance use status: in withdrawal Qualified Code(s): F17.213 - Nicotine dependence, cigarettes, with withdrawal (5) Asthma Current Visit: Yes Status: Chronic Qualifiers: Asthma severity: mild intermittent Asthma complication type: uncomplicated Qualified Code(s): J45.20 - Mild intermittent asthma, uncomplicated - AMA Did Patient Leave Against Medical Advice: No
== END 2017-06-09 12:31 | disposition other institution (70) | DRG 774 ==
LOC: YASAS 15:36 → Y3N 18:42
PROVIDERS: ADMIT Internal Medicine; ATTEND Internal Medicine
PROC: HZ2ZZZZ Detoxification Services for Substance Abuse Treatment (ICD-10-PCS; principal; 2017-06-05)
DX: F10.230 Alcohol dependence with withdrawal, uncomplicated (principal); F14.20 Cocaine dependence, uncomplicated; F12.20 Cannabis dependence, uncomplicated; F17.213 Nicotine dependence, cigarettes, with withdrawal; J45.20 Mild intermittent asthma, uncomplicated
CPT/HCPCS: 36415; 80053; 81003; 85027; 86593; 87389; 93005; 93010

== ENCOUNTER 2019-01-21 14:10 | Inpatient (IN) | payer OTHER ==
[2019-01-21 17:24] VITALS: BMI 31.0
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
[2019-01-21] MEDS ORDERED: IBUPROFEN 400 MG TABLET (FP) PO PRN (18:33)
[2019-01-21] MEDS ORDERED: MELATONIN 5 MG TABLETS PO PRN (18:39)
[2019-01-21] MEDS ORDERED: ONDANSETRON *ODT* 4 MG TABLET SL PRN (18:39)
[2019-01-21] MEDS ORDERED: NICOTINE POLACRILEX 4 MG GUM BUC PRN (18:39)
[2019-01-21] MEDS ORDERED: BISMUTH SUBSALICYLATE 524 MG/30 ML UD PO PRN (18:39)
[2019-01-21] MEDS ORDERED: hydrOXYzine PAMOATE 25 MG CAPSULE (FP) PO PRN (18:39)
[2019-01-21] MEDS ORDERED: chlordiazePOXIDE HCL 25 MG CAPSULE PO PRN (18:39)
[2019-01-21] MEDS ORDERED: ACETAMINOPHEN 325 MG TABLET (FP) PO PRN ×2 (18:39)
[2019-01-21] MEDS ORDERED: MAGNESIUM CITRATE 300 ML BOTTLE PO PRN (18:39)
[2019-01-21] MEDS ORDERED: MAG HYDROX/AL HYDROX/SIMETH 30 ML UNIT-DOSE CUP PO PRN (18:39)
[2019-01-21] MEDS ORDERED: MAGNESIUM HYDROX 2400MG/30ML ORAL SUSPENSION 30 ML CUP PO PRN (18:39)
[2019-01-21] MEDS ORDERED: guaiFENesin 200 MG/10 ML 10 ML UNIT-DOSE CUPS PO PRN (18:39)
[2019-01-21] MEDS ORDERED: METHOCARBAMOL 500 MG TABLET PO PRN (18:39)
[2019-01-21] MEDS ORDERED: MENTHOL/PHENOL 1 EACH UD MM PRN (18:39)
[2019-01-21] MEDS ORDERED: ALBUTEROL SO4 2.5/IPRATROPIUM 0.5 INH SOL 3 ML VIAL.NEB. NEB PRN (18:54)
[2019-01-21] MEDS: BACITRACIN 0.9 GM PACKET TP SCH (21:35)
[2019-01-21] MEDS: BUDESONIDE/FORMETEROL FUMARATE 160/4.5 mcg INHALER IH SCH (22:37)
[2019-01-21] MEDS: chlordiazePOXIDE HCL 25 MG CAPSULE PO SCH (22:42)
[2019-01-21] MEDS: GABAPENTIN 100 MG CAPSULE (FP) PO SCH (22:42)
[2019-01-21] MEDS: THIAMINE HCL 100 MG TABLET (FP) PO SCH (22:42)
[2019-01-22] MEDS: GABAPENTIN 100 MG CAPSULE (FP) PO SCH ×3 (06:55→22:38)
[2019-01-22] MEDS: chlordiazePOXIDE HCL 25 MG CAPSULE PO SCH ×4 (06:55→22:38)
[2019-01-22] MEDS: BUDESONIDE/FORMETEROL FUMARATE 160/4.5 mcg INHALER IH SCH ×2 (09:53→22:38)
[2019-01-22 09:54] LABS: ALBUMIN 3.3 g/dl (3.4-5.0); ALK PHOS 47 U/L (45-117); ANION GAP 6 MMOL/L (8-16); BILIRUBIN,TOTAL 0.5 mg/dL (0.2-1); BLOOD UREA NITROGEN 17 mg/dL (7-18); CALCIUM 8.5 mg/dL (8.5-10.1); CHLORIDE 107 mmol/L (98-107); CO2 27 mmol/L (21-32); CREATININE 1.1 mg/dL (0.55-1.3); GLUCOSE,RANDOM 115 mg/dL (74-106); POTASSIUM 3.8 mmol/L (3.5-5.1); SGOT/AST 15 U/L (15-37); SGPT/ALT 22 U/L (13-61); SODIUM 140 mmol/L (136-145); TOT PROT 6.3 g/dl (6.4-8.2)
[2019-01-22] MEDS: BACITRACIN 0.9 GM PACKET TP SCH (09:55)
[2019-01-22 09:56] LABS: HEMATOCRIT 37.7 % (35.4-49); MCH 28.5 pg (25.7-33.7); MCHC 31.9 g/dl (32.0-35.9); MEAN CELL VOLUME 89.6 fl (80-96); PLATELET COUNT 195 K/MM3 (134-434); RDW 13.3 % (11.9-15.9); WHITE BLOOD COUNT 7.7 K/mm3 (4.0-10.0)
[2019-01-22] MEDS ORDERED: PRENATAL VITAMINS W/ FOLIC ACID TABLET (FP) PO SCH (10:00)
[2019-01-22] MEDS ORDERED: NICOTINE 21 MG/24 HOURS TOPICAL PATCH TD SCH (10:00)
--- NOTE | 2019-01-22 11:53 | PN ---
[facility] CIWA - CIWA Score Nausea/Vomitin-Mild Nausea/No Vomiting Muscle Tremors: 2 Anxiety: 1-Mildly Anxious Agitation: 2 Paroxysmal Sweats: 1-Minimal Palms Moist Orientation: 2-Disoriented Date<2 days Tacttile Disturbances: 0-None Auditory Disturbances: 0-None Visual Disturbances: 0-None Headache: 1-Very Mild CIWA-Ar Total Score: 10 S Progress Note (SOAP) Subjective: feeling better today showered tolerate food and fluid well right cheek 22 suture x 2-3 days ago, treated at [facility] dressing intact dry and clean patient has appointment return to [facility] for follow up Objective: 01/22/19 11:52 Vital Signs Temperature 98.8 F 01/22/19 09:14 Pulse Rate 58 L 01/22/19 09:14 Respiratory Rate 16 01/22/19 09:14 Blood Pressure 93/62 01/22/19 09:14 O2 Sat by Pulse Oximetry (%) Laboratory Last Values WBC 7.7 K/mm3 (4.0-10.0) 01/22/19 07:00 RBC 4.20 M/mm3 (4.00-5.60) 01/22/19 07:00 Hgb 12.0 GM/dL (11.7-16.9) 01/22/19 07:00 Hct 37.7 % (35.4-49) 01/22/19 07:00 MCV 89.6 fl (80-96) 01/22/19 07:00 MCH 28.5 pg (25.7-33.7) 01/22/19 07:00 MCHC 31.9 g/dl (32.0-35.9) L 01/22/19 07:00 RDW 13.3 % (11.9-15.9) 01/22/19 07:00 Plt Count 195 K/MM3 (134-434) 01/22/19 07:00 MPV 12.0 fl (7.5-11.1) H 01/22/19 07:00 Sodium 140 mmol/L (136-145) 01/22/19 07:00 Potassium 3.8 mmol/L (3.5-5.1) 01/22/19 07:00 Chloride 107 mmol/L (98-107) 01/22/19 07:00 Carbon Dioxide 27 mmol/L (21-32) 01/22/19 07:00 Anion Gap 6 MMOL/L (8-16) L 01/22/19 07:00 BUN 17 mg/dL (7-18) 01/22/19 07:00 Creatinine 1.1 mg/dL (0.55-1.3) 01/22/19 07:00 Creat Clearance w eGFR 74.52 (>60) 01/22/19 07:00 Random Glucose 115 mg/dL (74-106) H 01/22/19 07:00 Calcium 8.5 mg/dL (8.5-10.1) 01/22/19 07:00 Total Bilirubin 0.5 mg/dL (0.2-1) 01/22/19 07:00 AST 15 U/L (15-37) 01/22/19 07:00 ALT 22 U/L (13-61) 01/22/19 07:00 Alkaline Phosphatase 47 U/L (45-117) 01/22/19 07:00 Total Protein 6.3 g/dl (6.4-8.2) L 01/22/19 07:00 Albumin 3.3 g/dl (3.4-5.0) L 01/22/19 07:00 HIV 1&2 Antibody Screen Negative 01/22/19 07:00 HIV P24 Antigen Negative 01/22/19 07:00 lab noted Assessment: 01/22/19 11:53 alcohol withdrawal sx Plan: continue detox
--- NOTE | 2019-01-22 14:38 | EKG ---
Test Reason : Blood Pressure : / mmHG Vent. Rate : 061 BPM Atrial Rate : 061 BPM P-R Int : 168 ms QRS Dur : 086 ms QT Int : 406 ms P-R-T Axes : 045 042 040 degrees QTc Int : 408 ms NORMAL SINUS RHYTHM NORMAL ECG WHEN COMPARED WITH ECG OF 05-JUN-2017 20:16, NO SIGNIFICANT CHANGE WAS FOUND Confirmed by MD DEY MOYSES ([id number]) on 01/22/2019 2:37:55 PM Referred By: Confirmed By:KHRIS DEY MD
[2019-01-22 19:06] LABS: PH,URINE 5.5 (5.0-8.0); URINE APPEARANCE CLEAR; URINE BILIRUBIN NEGATIVE (NEGATIVE); URINE COLOR YELLOW; URINE GLUCOSE (UA) NEGATIVE (NEGATIVE); URINE KETONE NEGATIVE (NEGATIVE); URINE LEUK ESTERASE NEGATIVE (NEGATIVE); URINE NITRITE NEGATIVE (NEGATIVE); URINE PROTEIN NEGATIVE (NEGATIVE)
[2019-01-22] MEDS: THIAMINE HCL 100 MG TABLET (FP) PO SCH (22:38)
[2019-01-23] MEDS: chlordiazePOXIDE HCL 25 MG CAPSULE PO SCH (05:01)
[2019-01-23] MEDS: GABAPENTIN 100 MG CAPSULE (FP) PO SCH (05:01)
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
[2019-01-23 06:31] VITALS: BP 123/80; PULSE 86; TEMP 97.7
[2019-01-23] MEDS ORDERED: chlordiazePOXIDE HCL 10 MG CAPSULE PO PRN (23:00)
[2019-01-23] MEDS ORDERED: chlordiazePOXIDE HCL 10 MG CAPSULE PO SCH (23:00)
[2019-01-24] MEDS ORDERED: chlordiazePOXIDE HCL 10 MG CAPSULE PO SCH (23:00)
== END 2019-01-23 07:12 | disposition left against medical advice (07) | DRG 770 ==
LOC: YASAS 14:10 → Y3N 18:49
PROVIDERS: ADMIT Surgery; ATTEND Surgery
PROC: HZ2ZZZZ Detoxification Services for Substance Abuse Treatment (ICD-10-PCS; principal; 2019-01-21)
DX: F10.230 Alcohol dependence with withdrawal, uncomplicated (principal); F14.20 Cocaine dependence, uncomplicated; F12.20 Cannabis dependence, uncomplicated; F17.213 Nicotine dependence, cigarettes, with withdrawal; J45.909 Unspecified asthma, uncomplicated; S01.81XD Laceration without foreign body of other part of head, subsequent encounter; S71.112D Laceration without foreign body, left thigh, subsequent encounter; X58.XXXD Exposure to other specified factors, subsequent encounter
CPT/HCPCS: 36415; 80053; 81003; 85027; 86593; 87389; 93005; 93010; Q0162

== ENCOUNTER 2019-02-11 16:37 | Inpatient (IN) | payer OTHER ==
[2019-02-11 19:03] VITALS: BMI 23.1
--- NOTE | 2019-02-11 21:59 | HP ---
CIWA Score Nausea/Vomitin - Admission Criteria OASAS Guidelines: Admission for Medically Managed Detox: Requires at least one of the followin. CIWA greater than 12 2. Seizures within the past 24 hours 3. Delirium tremens within the past 24 hours 4. Hallucinations within the past 24 hours 5. Acute intervention needed for co occurring medical disorder 6. Acute intervention needed for co occurring psychiatric disorder 7. Severe withdrawal that cannot be handled at a lower level of care (continued vomiting, continued diarrhea, abnormal vital signs) requiring intravenous medication and/or fluids 8. Admission ROS [facility] Allergies/Adverse Reactions: Allergies Allergy/AdvReac Type Severity Reaction Status Date / Time No Known Allergies Allergy Verified 02/11/19 18:56 - Ebola screening Have you traveled outside of the country in the last 21 days: No Have you had contact with anyone from an Ebola affected area: No Patient History - Patient Medical History Hx Anemia: No Hx Asthma: Yes (ADVAIR) Hx Chronic Obstructive Pulmonary Disease (COPD): No Hx Cancer: No Hx Cardiac Disorders: No Hx Congestive Heart Failure: No Hx Hypertension: No Hx Hypercholesterolemia: No Hx Pacemaker: No HX Cerebrovascular Accident: No Hx Seizures: No Hx Dementia: No Hx Diabetes: No Hx Gastrointestinal Disorders: No Hx Liver Disease: No Hx Genitourinary Disorders: No Hx Sexually Transmitted Disorders: No Hx Renal Disease (ESRD): No Hx Thyroid Disease: No Hx Human Immunodeficiency Virus (HIV): No Hx Hepatitis C: No Hx Depression: No Hx Suicide Attempt: No Hx Bipolar Disorder: No Hx Schizophrenia: No - Patient Surgical History Past Surgical History: No Hx Neurologic Surgery: No Hx Cataract Extraction: No Hx Cardiac Surgery: No Hx Lung Surgery: No Hx Breast Surgery: No Hx Breast Biopsy: No Hx Abdominal Surgery: No Hx Appendectomy: No Hx Cholecystectomy: No Hx Genitourinary Surgery: No Hx Section: No Hx Orthopedic Surgery: No Anesthesia Reaction: No - PPD History Date: 01/21/19 - Smoking Cessation Smoking history: Current every day smoker Have you smoked in the past 12 months: No Aproximately how many cigarettes per day: 60 Cigars Per Day: 0 Hx Chewing Tobacco Use: No - Substances abused Alcohol Substance route: Oral Frequency: Daily Amount used: 4 PINTS VODKA Age of first use: 14 Date of last use: 02/11/19 Family Disease History - Family Disease History Family Disease History: Other: Mother (ALCOHOLISM) Admission Physical Exam BHS - Vital Signs Vital Signs: Vital Signs - 24 hr 02/11/19 18:54 Temperature 98.4 F Pulse Rate 77 Respiratory 20 Rate Blood Pressure 117/74 Breathalyzer - Breathalyzer Breathalyzer: 0 Urine Drug Screen - Test Device Lot number: [id number] Expiration date: 12/23/19 - Control Is test valid?: Yes - Results Drug screen NEGATIVE: No Urine drug screen results: JOSE-Cocaine, BZO-Benzodiazepines
--- NOTE | 2019-02-11 22:03 | HP ---
CIWA Score Nausea/Vomitin (vomiting x 2) Muscle Tremors: 3 Anxiety: 3 Agitation: 3 Paroxysmal Sweats: 3 Orientation: 0-Oriented Tacttile Disturbances: 0-None Auditory Disturbances: 0-None Visual Disturbances: 0-None Headache: 4-Moderately Severe CIWA-Ar Total Score: 19 - Admission Criteria OASAS Guidelines: Admission for Medically Managed Detox: Requires at least one of the followin. CIWA greater than 12 2. Seizures within the past 24 hours 3. Delirium tremens within the past 24 hours 4. Hallucinations within the past 24 hours 5. Acute intervention needed for co occurring medical disorder 6. Acute intervention needed for co occurring psychiatric disorder 7. Severe withdrawal that cannot be handled at a lower level of care (continued vomiting, continued diarrhea, abnormal vital signs) requiring intravenous medication and/or fluids 8. Admission ROS [facility] Chief Complaint: Alcohol withdrawal symptoms Allergies/Adverse Reactions: Allergies Allergy/AdvReac Type Severity Reaction Status Date / Time No Known Allergies Allergy Verified 02/11/19 18:56 History of Present Illness: 38 years old transgender male with 15 years of alcohol dependence is seeking admission to detox. Patient was in detox 01/20/2019 - 01/23/2019, here at [facility]. He reports insignificant period of sobriety. He has medical history of asthma. Patient denies suicidal ideation at this time. Exam Limitations: No Limitations - Ebola screening Have you traveled outside of the country in the last 21 days: No Have you had contact with anyone from an Ebola affected area: No Have you been sick,other than usual withdrawal symptoms: No Do you have a fever: No - Review of Systems Constitutional: Chills, Night Sweats, Changes in sleep EENT: reports: No Symptoms Reported Respiratory: reports: No Symptoms reported Cardiac: reports: No Symptoms Reported GI: reports: Poor Appetite, Poor Fluid Intake, Vomiting, Abdominal cramping : reports: No Symptoms Reported Musculoskeletal: reports: Muscle Pain Integumentary: reports: Dryness, Flushing Neuro: reports: Headache, Tremors Endocrine: reports: No Symptoms Reported Hematology: reports: No Symptoms Reported Psychiatric: reports: Orientated x3, Disorientated Other Systems: Reviewed and Negative Patient History - Patient Medical History Hx Anemia: No Hx Asthma: Yes (ADVAIR) Hx Chronic Obstructive Pulmonary Disease (COPD): No Hx Cancer: No Hx Cardiac Disorders: No Hx Congestive Heart Failure: No Hx Hypertension: No Hx Hypercholesterolemia: No Hx Pacemaker: No HX Cerebrovascular Accident: No Hx Seizures: No Hx Dementia: No Hx Diabetes: No Hx Gastrointestinal Disorders: No Hx Liver Disease: No Hx Genitourinary Disorders: No Hx Sexually Transmitted Disorders: No Hx Renal Disease (ESRD): No Hx Thyroid Disease: No Hx Human Immunodeficiency Virus (HIV): No Hx Hepatitis C: No Hx Depression: No Hx Suicide Attempt: No Hx Bipolar Disorder: No Hx Schizophrenia: No - Patient Surgical History Past Surgical History: No Hx Neurologic Surgery: No Hx Cataract Extraction: No Hx Cardiac Surgery: No Hx Lung Surgery: No Hx Breast Surgery: No Hx Breast Biopsy: No Hx Abdominal Surgery: No Hx Appendectomy: No Hx Cholecystectomy: No Hx Genitourinary Surgery: No Hx Section: No Hx Orthopedic Surgery: No Anesthesia Reaction: No - PPD History Documented Results: Negative w/proof Implanted On Prior [facility] Admission?: Yes Date: 01/21/19 PPD to be Administered?: No - Reproductive History Patient is a Female of Child Bearing Age (11 -55 yrs old): No (male) - Smoking Cessation Smoking history: Current every day smoker Have you smoked in the past 12 months: No Aproximately how many cigarettes per day: 60 Cigars Per Day: 0 Hx Chewing Tobacco Use: No Initiated information on smoking cessation: Yes 'Breaking Loose' booklet given: 02/11/19 - Substance & Tx. History Hx Alcohol Use: Yes Hx Substance Use: No Substance Use Type: Alcohol, Cocaine Hx Substance Use Treatment: Yes ([facility]) - Substances abused Alcohol Substance route: Oral Frequency: Daily Amount used: 4 PINTS VODKA Age of first use: 14 Date of last use: 02/11/19 Family Disease History - Family Disease History Family Disease History: Other: Mother (ALCOHOLISM) Admission Physical Exam BHS - Vital Signs Vital Signs: Vital Signs - 24 hr 02/11/19 18:54 Temperature 98.4 F Pulse Rate 77 Respiratory 20 Rate Blood Pressure 117/74 - Physical General Appearance: Yes: Moderate Distress, Anxious HEENTM: Yes: Within Normal Limits Respiratory: Yes: Normal Breath Sounds, No Respiratory Distress Neck: Yes: Supple Breast: Yes: Breast Exam Deferred Cardiology: Yes: Regular Rhythm, Regular Rate Abdominal: Yes: Normal Bowel Sounds, Soft Genitourinary: Yes: Within Normal Limits Back: Yes: Normal Inspection Musculoskeletal: Yes: Joint Stiffness, Other (Unsteady gait. Ambulates with a cane) Extremities: Yes: Tremors Neurological: Yes: Alert, Normal Mood/Affect Integumentary: Yes: Warm Lymphatic: Yes: Within Normal Limits - Diagnostic (1) Alcohol dependence with uncomplicated withdrawal Current Visit: No Status: Acute (2) Asthma Current Visit: No Status: Chronic Qualifiers: Asthma severity: unspecified severity Asthma persistence: unspecified Asthma complication type: uncomplicated Qualified Code(s): J45.909 - Unspecified asthma, uncomplicated (3) Cocaine dependence, uncomplicated Current Visit: No Status: Chronic (4) Nicotine dependence Current Visit: No Status: Chronic Qualifiers: Nicotine product type: cigarettes Substance use status: in withdrawal Qualified Code(s): F17.213 - Nicotine dependence, cigarettes, with withdrawal Cleared for Admission S - Detox or Rehab [facility] Level of Care: Medically Managed Detox Regimen/Protocol: Librium Breathalyzer - Breathalyzer Breathalyzer: 0 Urine Drug Screen - Test Device Lot number: [id number] Expiration date: 12/23/19 - Control Is test valid?: Yes - Results Drug screen NEGATIVE: No Urine drug screen results: JOSE-Cocaine, BZO-Benzodiazepines Inpatient Rehab Admission - Rehab Decision to Admit Inpatient rehab admission?: No
[2019-02-11] MEDS ORDERED: MENTHOL/PHENOL 1 EACH UD MM PRN (22:22)
[2019-02-11] MEDS ORDERED: hydrOXYzine PAMOATE 25 MG CAPSULE (FP) PO PRN (22:22)
[2019-02-11] MEDS ORDERED: METHOCARBAMOL 500 MG TABLET PO PRN (22:22)
[2019-02-11] MEDS ORDERED: chlordiazePOXIDE HCL 25 MG CAPSULE PO PRN (22:22)
[2019-02-11] MEDS ORDERED: ACETAMINOPHEN 325 MG TABLET (FP) PO PRN ×2 (22:22)
[2019-02-11] MEDS ORDERED: MAGNESIUM HYDROX 2400MG/30ML ORAL SUSPENSION 30 ML CUP PO PRN (22:22)
[2019-02-11] MEDS ORDERED: BISMUTH SUBSALICYLATE 524 MG/30 ML UD PO PRN (22:22)
[2019-02-11] MEDS ORDERED: NICOTINE POLACRILEX 2 MG GUM BUC PRN (22:22)
[2019-02-11] MEDS ORDERED: MAGNESIUM CITRATE 300 ML BOTTLE PO PRN (22:22)
[2019-02-11] MEDS ORDERED: MELATONIN 5 MG TABLETS PO PRN (22:22)
[2019-02-11] MEDS ORDERED: MAG HYDROX/AL HYDROX/SIMETH 30 ML UNIT-DOSE CUP PO PRN (22:22)
[2019-02-11] MEDS ORDERED: IBUPROFEN 400 MG TABLET (FP) PO PRN (22:22)
[2019-02-11] MEDS: chlordiazePOXIDE HCL 25 MG CAPSULE PO SCH (23:43)
[2019-02-12] MEDS: chlordiazePOXIDE HCL 25 MG CAPSULE PO SCH ×4 (06:35→23:19)
--- NOTE | 2019-02-12 09:41 | PN ---
BHS CIWA - CIWA Score Nausea/Vomitin Muscle Tremors: 2 Anxiety: 2 Agitation: 2 Paroxysmal Sweats: 1-Minimal Palms Moist Orientation: 0-Oriented Tacttile Disturbances: 1-Very Mild Itch/Numbness Auditory Disturbances: 1-Very Mild Visual Disturbances: 0-None Headache: 2-Mild CIWA-Ar Total Score: 13 BHS Progress Note (SOAP) Subjective: alert,irritable,anxious,interrupted sleep,tremor Objective: 02/12/19 09:40 Vital Signs Temperature 98.1 F 02/12/19 07:37 Pulse Rate 53 L 02/12/19 07:37 Respiratory Rate 20 02/12/19 07:37 Blood Pressure 125/67 02/12/19 07:37 O2 Sat by Pulse Oximetry (%) labs pending Assessment: 02/12/19 09:41 withdrawal symptom Plan: continue detox
[2019-02-12 10:08] LABS: HEMATOCRIT 40.8 % (35.4-49); MCH 29.1 pg (25.7-33.7); MEAN CELL VOLUME 91.1 fl (80-96); MEAN PLT VOLUME 11.8 fl (7.5-11.1); PLATELET COUNT 198 K/MM3 (134-434); RBC 4.48 M/mm3 (4.00-5.60); RDW 13.3 % (11.9-15.9); WHITE BLOOD COUNT 10.1 K/mm3 (4.0-10.0)
[2019-02-12 10:13] LABS: ALBUMIN 3.2 g/dl (3.4-5.0); BILIRUBIN,TOTAL 0.6 mg/dL (0.2-1); CALCIUM 8.6 mg/dL (8.5-10.1); POTASSIUM 3.7 mmol/L (3.5-5.1); TOT PROT 6.1 g/dl (6.4-8.2)
[2019-02-12] MEDS: NICOTINE 21 MG/24 HOURS TOPICAL PATCH TD SCH (11:10)
[2019-02-12] MEDS: PRENATAL VITAMINS W/ FOLIC ACID TABLET (FP) PO SCH (11:20)
[2019-02-12] MEDS: BUDESONIDE/FORMETEROL FUMARATE 80/4.5 mcg INHALER IH SCH ×2 (11:20→23:19)
[2019-02-12] MEDS: THIAMINE HCL 100 MG TABLET (FP) PO SCH (23:19)
[2019-02-13] MEDS: chlordiazePOXIDE HCL 25 MG CAPSULE PO SCH ×3 (06:18→17:48)
[2019-02-13] MEDS: PRENATAL VITAMINS W/ FOLIC ACID TABLET (FP) PO SCH (11:01)
[2019-02-13] MEDS: BUDESONIDE/FORMETEROL FUMARATE 80/4.5 mcg INHALER IH SCH ×2 (11:01→22:43)
[2019-02-13] MEDS: NICOTINE 21 MG/24 HOURS TOPICAL PATCH TD SCH (11:02)
--- NOTE | 2019-02-13 13:56 | PN ---
[facility] CIWA - CIWA Score Nausea/Vomitin-No Nausea/No Vomiting Muscle Tremors: None Anxiety: 4-Mod. Anxious/Guarded Agitation: 2 Paroxysmal Sweats: 3 Orientation: 2-Disoriented Date<2 days Tacttile Disturbances: 3-Moderate Itch/Numb/Burn Auditory Disturbances: 0-None Visual Disturbances: 1-Very Mild Sensitivity Headache: 0-None Present CIWA-Ar Total Score: 15 BHS Progress Note (SOAP) Subjective: Sweating, Diarrhea, Anxious. Objective: PATIENT A & O X 2 (UNCERTAIN ABOUT CURRENT DAY / DATE). PATIENT OBSERVED AMBULATING ON UNIT UNASSISTED. IN NO ACUTE DISTRESS. 02/13/19 13:55 Vital Signs Temperature 98.3 F 02/13/19 10:48 Pulse Rate 64 02/13/19 10:48 Respiratory Rate 02/13/19 10:48 Blood Pressure 114/59 L 02/13/19 10:48 O2 Sat by Pulse Oximetry (%) Laboratory Tests 02/12/19 02/12/19 02/12/19 07:00 07:00 07:00 WBC 10.1 H RBC 4.48 Hgb 13.0 Hct 40.8 MCV 91.1 MCH 29.1 MCHC 32.0 RDW 13.3 Plt Count 198 MPV 11.8 H Sodium 141 Potassium 3.7 Chloride 109 H Carbon Dioxide 26 Anion Gap 6 L BUN 17 Creatinine 1.0 Est GFR (CKD-EPI)AfAm 109.40 Est GFR (CKD-EPI)NonAf 94.39 Random Glucose 112 H Calcium 8.6 Total Bilirubin 0.6 AST 13 L ALT 23 Alkaline Phosphatase 49 Total Protein 6.1 L Albumin 3.2 L RPR Titer Nonreactive HIV 1&2 Antibody Screen HIV P24 Antigen 02/12/19 07:00 WBC RBC Hgb Hct MCV MCH MCHC RDW Plt Count MPV Sodium Potassium Chloride Carbon Dioxide Anion Gap BUN Creatinine Est GFR (CKD-EPI)AfAm Est GFR (CKD-EPI)NonAf Random Glucose Calcium Total Bilirubin AST ALT Alkaline Phosphatase Total Protein Albumin RPR Titer HIV 1&2 Antibody Screen Negative HIV P24 Antigen Negative LABS NOTED. Assessment: 02/13/19 13:55 WITHDRAWAL SYMPTOMS. Plan: CONTINUE DETOX. INCREASE DAILY PO FLUID / WATER INTAKE. PRN PEPTO-BISMOL PO FOR DIARRHEA.
[2019-02-13] MEDS: MINERAL OIL/PETROLAT/WATER TOPICAL CREAM 113 GM JAR TP SCH ×2 (15:58→21:30)
[2019-02-13] MEDS: chlordiazePOXIDE HCL 10 MG CAPSULE PO SCH (22:42)
[2019-02-13] MEDS: THIAMINE HCL 100 MG TABLET (FP) PO SCH (22:43)
[2019-02-13] MEDS ORDERED: chlordiazePOXIDE HCL 10 MG CAPSULE PO PRN (23:00)
[2019-02-14] MEDS: chlordiazePOXIDE HCL 10 MG CAPSULE PO SCH ×2 (06:52→10:50)
[2019-02-14 09:28] VITALS: BP 130/73; PULSE 79; TEMP 97.5
--- NOTE | 2019-02-14 10:06 | PN ---
S Progress Note (SOAP) Subjective: alert,irritable,anxious,interrupted sleep Objective: 02/14/19 10:06 Vital Signs Temperature 97.5 F L 02/14/19 09:27 Pulse Rate 79 02/14/19 09:27 Respiratory Rate 18 02/14/19 09:27 Blood Pressure 130/73 02/14/19 09:27 O2 Sat by Pulse Oximetry (%) Assessment: 02/14/19 10:06 withdrawal symptom Plan: continue detox,discharge in am
[2019-02-14] MEDS: BUDESONIDE/FORMETEROL FUMARATE 80/4.5 mcg INHALER IH SCH (10:46)
[2019-02-14] MEDS: NICOTINE 21 MG/24 HOURS TOPICAL PATCH TD SCH (10:46)
[2019-02-14] MEDS: PRENATAL VITAMINS W/ FOLIC ACID TABLET (FP) PO SCH (10:46)
[2019-02-14] MEDS: MINERAL OIL/PETROLAT/WATER TOPICAL CREAM 113 GM JAR TP SCH (10:50)
--- NOTE | 2019-02-14 14:44 | DS ---
[facility] Detox Discharge Summary Admission Date: 02/11/19 Discharge Date: 02/14/19 - History Present History: Alcohol Dependence, Cannabis Dependence - Physical Exam Results Vital Signs: Vital Signs Temperature 97.5 F L 02/14/19 09:27 Pulse Rate 79 02/14/19 09:27 Respiratory Rate 18 02/14/19 09:27 Blood Pressure 130/73 02/14/19 09:27 O2 Sat by Pulse Oximetry (%) - Treatment Hospital Course: Detox Protocol Followed, Detoxed Safely, Responded well, Discharged Condition Good, Rehab Referral Accepted - Medication Discharge Medications: Ambulatory Orders Salmeterol/Fluticasone [Advair 250Mcg/50Mcg -] 1 inh PO BID 06/05/17 - Diagnosis (1) Alcohol dependence with uncomplicated withdrawal Status: Chronic (2) Laceration of skin of face Status: Acute Qualifiers: Encounter type: subsequent encounter Qualified Code(s): S01.81XD - Laceration without foreign body of other part of head, subsequent encounter (3) Laceration of thigh, left Status: Acute Qualifiers: Encounter type: subsequent encounter Qualified Code(s): S71.112D - Laceration without foreign body, left thigh, subsequent encounter (4) Asthma Status: Chronic Qualifiers: Asthma severity: unspecified severity Asthma persistence: unspecified Asthma complication type: uncomplicated Qualified Code(s): J45.909 - Unspecified asthma, uncomplicated (5) Cannabis dependence, uncomplicated Status: Chronic (6) Cocaine dependence, uncomplicated Status: Chronic (7) Nicotine dependence Status: Chronic Qualifiers: Nicotine product type: cigarettes Substance use status: uncomplicated Qualified Code(s): F17.210 - Nicotine dependence, cigarettes, uncomplicated - AMA Did Patient Leave Against Medical Advice: No (refused aftercare)
[2019-02-14] MEDS ORDERED: chlordiazePOXIDE HCL 10 MG CAPSULE PO SCH (23:00)
== END 2019-02-14 11:49 | disposition home or self-care (01) | DRG 774 ==
LOC: YASAS 16:37 → Y6N 22:13
PROVIDERS: ADMIT Surgery; ATTEND Surgery
PROC: HZ2ZZZZ Detoxification Services for Substance Abuse Treatment (ICD-10-PCS; principal; 2019-02-11)
DX: F10.230 Alcohol dependence with withdrawal, uncomplicated (principal); F14.20 Cocaine dependence, uncomplicated; F12.20 Cannabis dependence, uncomplicated; F17.210 Nicotine dependence, cigarettes, uncomplicated; J45.909 Unspecified asthma, uncomplicated; R26.89 Other abnormalities of gait and mobility; Z99.89 Dependence on other enabling machines and devices
CPT/HCPCS: 36415; 80053; 85027; 86593; 87389

== ENCOUNTER 2019-03-08 17:30 | Inpatient (IN) | payer OTHER ==
[2019-03-08 22:21] VITALS: BMI 30.2
--- NOTE | 2019-03-09 00:31 | HP ---
CIWA Score Nausea/Vomitin Muscle Tremors: 4-Moderate,w/Arms Extend Anxiety: 1-Mildly Anxious Agitation: 1-Slight > Activity Paroxysmal Sweats: 3 (Increased facial moisture) Orientation: 0-Oriented Tacttile Disturbances: 0-None Auditory Disturbances: 0-None Visual Disturbances: 2-Mild Sensitivity (Mild sensitivity to light) Headache: 2-Mild CIWA-Ar Total Score: 16 - Admission Criteria OASAS Guidelines: Admission for Medically Managed Detox: Requires at least one of the followin. CIWA greater than 12 2. Seizures within the past 24 hours 3. Delirium tremens within the past 24 hours 4. Hallucinations within the past 24 hours 5. Acute intervention needed for co occurring medical disorder 6. Acute intervention needed for co occurring psychiatric disorder 7. Severe withdrawal that cannot be handled at a lower level of care (continued vomiting, continued diarrhea, abnormal vital signs) requiring intravenous medication and/or fluids 8. Patient presents the following: CIWA greater than 12 Admission Criteria Met: Admission criteria met Admission ROS [facility] Chief Complaint: States having alcohol withdrawals" Allergies/Adverse Reactions: Allergies Allergy/AdvReac Type Severity Reaction Status Date / Time No Known Allergies Allergy Verified 03/08/19 22:16 History of Present Illness: 38 year old presents w/ c/0 alcohol withdrawal symptoms and requesting detox. Alcohol use began at age 14. States current use is 4 pints vodka daily. Patient was in detox 01/20/2019 - 01/23/2019, here at [facility], and signed out AMA. Patient was in detox 02/11/2019 - 02/14/2019, here at [facility], and completed detox. Patient declined referrals.States began drinking as soon as discharged. Nicotine use since age 14. Reports no significant period of sobriety. Denies hx seizures, blackouts. Overdose 6 months ago r/t mixed liquor w/cocaine. PMHx: Asthma (does not take inhaler) . Female Hormone replacement d/c over 1 year ago. MHHx: Denies depression. Denies suicidal/violent ideation at this time. Search Terms: Parish Varun, 1980 Search Date: 03/09/2019 12:35:26 AM The Drug Utilization Report below displays all of the controlled substance prescriptions, if any, that your patient has filled in the last twelve months. The information displayed on this report is compiled from pharmacy submissions to the Department, and accurately reflects the information as submitted by the pharmacies. This report was requested by: Kym Watson | Reference #: [id number] There are no results for the search terms that you entered. Search Terms: Parish Bond, 1980 Search Date: 03/09/2019 12:35:55 AM States Searched: [place], [place], [place], [place], [place], [place], [place] The Drug Utilization Report below displays the controlled substance prescriptions, if any, that were dispensed in the indicated state(s). The information displayed on this report is compiled from requests submitted to other states' PMPs, and accurately reflects the information as returned by them. Blank gaytan indicate data not provided by other state. This report was requested by: Kym Watson | Reference #: [id number] Exam Limitations: No Limitations - Ebola screening Have you traveled outside of the country in the last 21 days: No (N) Have you had contact with anyone from an Ebola affected area: No Have you been sick,other than usual withdrawal symptoms: No (Denies recent exposure to measles.) Do you have a fever: No - Review of Systems Constitutional: Chills EENT: reports: No Symptoms Reported Respiratory: reports: No Symptoms reported Cardiac: reports: No Symptoms Reported GI: reports: Nausea : reports: No Symptoms Reported Musculoskeletal: reports: No Symptoms Reported Integumentary: reports: No Symptoms Reported Neuro: reports: Headache (Mild headache at sides of head), Tremors Endocrine: reports: No Symptoms Reported Hematology: reports: No Symptoms Reported Psychiatric: reports: Judgement Intact, Orientated x3, Agitated Patient History - Patient Medical History Hx Anemia: No Hx Asthma: Yes (ADVAIR) Hx Chronic Obstructive Pulmonary Disease (COPD): No Hx Cancer: No Hx Cardiac Disorders: No Hx Congestive Heart Failure: No Hx Hypertension: No Hx Hypercholesterolemia: No Hx Pacemaker: No HX Cerebrovascular Accident: No Hx Seizures: No Hx Dementia: No Hx Diabetes: No Hx Gastrointestinal Disorders: No Hx Liver Disease: No Hx Genitourinary Disorders: No Hx Sexually Transmitted Disorders: No Hx Renal Disease (ESRD): No Hx Thyroid Disease: No Hx Human Immunodeficiency Virus (HIV): No Hx Hepatitis C: No Hx Depression: No Hx Suicide Attempt: No Hx Bipolar Disorder: No Hx Schizophrenia: No - Patient Surgical History Past Surgical History: No Hx Neurologic Surgery: No Hx Cataract Extraction: No Hx Cardiac Surgery: No Hx Lung Surgery: No Hx Breast Surgery: No Hx Breast Biopsy: No Hx Abdominal Surgery: No Hx Appendectomy: No Hx Cholecystectomy: No Hx Genitourinary Surgery: No Hx Section: No Hx Orthopedic Surgery: No Anesthesia Reaction: No - PPD History Previous Implant?: Yes Documented Results: Negative w/proof Implanted On Prior [facility] Admission?: Yes Date: 01/21/19 Results: negative PPD to be Administered?: No - Smoking Cessation Smoking history: Current every day smoker Have you smoked in the past 12 months: No Aproximately how many cigarettes per day: 60 Cigars Per Day: 0 Hx Chewing Tobacco Use: No Initiated information on smoking cessation: Yes 'Breaking Loose' booklet given: 03/09/19 - Substance & Tx. History Hx Alcohol Use: Yes Hx Substance Use: Yes Substance Use Type: Alcohol, Cocaine, Marijuana Hx Substance Use Treatment: Yes (detox) - Substances abused Alcohol Substance route: Oral Frequency: Daily Amount used: 4 PINTS VODKA Age of first use: 14 Date of last use: 03/08/19 Family Disease History - Family Disease History Family Disease History: Other: Mother (ALCOHOLISM) Admission Physical Exam BHS - Vital Signs Vital Signs: Vital Signs - 24 hr 03/08/19 03/08/19 22:15 23:05 Temperature 98.2 F 98.2 F Pulse Rate 81 81 Respiratory 18 18 Rate Blood Pressure 129/90 129/90 - Physical General Appearance: Yes: Nourished, Mild Distress, Tremorous (mod w/ arms elevated), Sweating (Increased facial moisture), Anxious HEENTM: Yes: EOMI, Hearing grossly Normal, Normocephalic, Normal Voice, LOR, Pharynx Normal Respiratory: Yes: Lungs Clear, Normal Breath Sounds, No Respiratory Distress Neck: Yes: No masses,lesions,Nodules, Supple Breast: Yes: Breast Exam Deferred Cardiology: Yes: Regular Rhythm, Regular Rate, S1, S2 Abdominal: Yes: Non Tender, Soft, Protuberent (Increased abdominal adiposity.) Genitourinary: Yes: Within Normal Limits Back: Yes: Normal Inspection Musculoskeletal: Yes: full range of Motion, Gait Steady Extremities: Yes: Normal Capillary Refill, Normal Range of Motion, Tremors Neurological: Yes: under trimmer II-XII NML intact, Fully Oriented, Alert, Motor Strength 5/5 Integumentary: Yes: Normal Color, Warm Lymphatic: Yes: Within Normal Limits - Diagnostic (1) Alcohol dependence with uncomplicated withdrawal Current Visit: Yes Status: Acute (2) Cannabis dependence, uncomplicated Current Visit: Yes Status: Chronic (3) Cocaine dependence, uncomplicated Current Visit: Yes Status: Chronic (4) Nicotine dependence Current Visit: Yes Status: Chronic Qualifiers: Nicotine product type: cigarettes Substance use status: uncomplicated Qualified Code(s): F17.210 - Nicotine dependence, cigarettes, uncomplicated Cleared for Admission S - Detox or Rehab [facility] Level of Care: Medically Managed Detox Regimen/Protocol: Librium Claeared for Rehab Admission: No Breathalyzer - Breathalyzer Breathalyzer: 0 Urine Drug Screen - Test Device Lot number: [id number] Expiration date: 11/22/20 - Control Is test valid?: Yes - Results Drug screen NEGATIVE: No Urine drug screen results: THC-Marijuana, JOSE-Cocaine, BZO-Benzodiazepines Inpatient Rehab Admission - Rehab Decision to Admit Inpatient rehab admission?: No
[2019-03-09] MEDS ORDERED: IBUPROFEN 400 MG TABLET (FP) PO PRN (01:11)
[2019-03-09] MEDS ORDERED: NICOTINE POLACRILEX 4 MG GUM BUC PRN (01:11)
[2019-03-09] MEDS ORDERED: MAGNESIUM CITRATE 300 ML BOTTLE PO PRN (01:11)
[2019-03-09] MEDS ORDERED: chlordiazePOXIDE HCL 25 MG CAPSULE PO PRN (01:11)
[2019-03-09] MEDS ORDERED: MELATONIN 5 MG TABLETS PO PRN (01:11)
[2019-03-09] MEDS ORDERED: MAG HYDROX/AL HYDROX/SIMETH 30 ML UNIT-DOSE CUP PO PRN (01:11)
[2019-03-09] MEDS ORDERED: BISMUTH SUBSALICYLATE 262 MG/15 ML BTL PO PRN (01:11)
[2019-03-09] MEDS ORDERED: MAGNESIUM HYDROX 2400MG/30ML ORAL SUSPENSION 30 ML CUP PO PRN (01:11)
[2019-03-09] MEDS ORDERED: ACETAMINOPHEN 325 MG TABLET (FP) PO PRN ×2 (01:11)
[2019-03-09] MEDS ORDERED: chlordiazePOXIDE HCL 25 MG CAPSULE PO ONE (01:11)
[2019-03-09] MEDS ORDERED: MENTHOL/PHENOL 1 EACH UD MM PRN (01:11)
[2019-03-09] MEDS ORDERED: METHOCARBAMOL 500 MG TABLET PO PRN (01:11)
[2019-03-09] MEDS: chlordiazePOXIDE HCL 25 MG CAPSULE PO SCH ×4 (07:28→22:22)
--- NOTE | 2019-03-09 10:34 | PN ---
BHS CIWA - CIWA Score Nausea/Vomitin-No Nausea/No Vomiting Muscle Tremors: 2 Anxiety: 2 Agitation: 2 Paroxysmal Sweats: 3 Orientation: 0-Oriented Tacttile Disturbances: 1-Very Mild Itch/Numbness Auditory Disturbances: 0-None Visual Disturbances: 0-None Headache: 2-Mild CIWA-Ar Total Score: 12 BHS Progress Note (SOAP) Subjective: c/o headache, sweats, anxiety, and shakes. Objective: 03/09/19 10:33 Vital Signs 03/09/19 03/09/19 03/09/19 03:30 06:13 09:30 Temperature 97.2 F L 97.8 F Pulse Rate 63 78 Respiratory 18 18 18 Rate Blood Pressure 106/59 L 118/68 Labs pending. Assessment: 03/09/19 10:34 AOX3, in no acute distress Full ROM, ambulating in the unit. Withdrawal symptoms. Plan: continue detox increase fluids.
[2019-03-09 10:41] LABS: ALBUMIN 3.3 g/dl (3.4-5.0); BILIRUBIN,TOTAL 0.3 mg/dL (0.2-1); BLOOD UREA NITROGEN 18.8 mg/dL (7-18); CALCIUM 8.4 mg/dL (8.5-10.1); CREATININE 0.9 mg/dL (0.55-1.3); TOT PROT 6.2 g/dl (6.4-8.2)
[2019-03-09 11:19] LABS: HEMATOCRIT 42.3 % (35.4-49); HEMOGLOBIN 13.8 GM/dL (11.7-16.9); MCH 29.5 pg (25.7-33.7); MCHC 32.6 g/dl (32.0-35.9); MEAN CELL VOLUME 90.3 fl (80-96); MEAN PLT VOLUME 12.2 fl (7.5-11.1); RBC 4.68 M/mm3 (4.00-5.60); RDW 13.3 % (11.9-15.9); WHITE BLOOD COUNT 8.9 K/mm3 (4.0-10.0)
[2019-03-09 11:37] LABS: PLATELET COUNT 195 K/MM3 (134-434)
[2019-03-09] MEDS: PRENATAL VITAMINS W/ FOLIC ACID TABLET (FP) PO SCH (11:43)
[2019-03-09] MEDS: NICOTINE 21 MG/24 HOURS TOPICAL PATCH TD SCH (11:43)
[2019-03-09] MEDS: VITAMINS A AND D TOPICAL OINTMENT 60 GM TUBE TP PRN (17:48)
[2019-03-09] MEDS: THIAMINE HCL 100 MG TABLET (FP) PO SCH (22:21)
[2019-03-10] MEDS: chlordiazePOXIDE HCL 25 MG CAPSULE PO SCH ×4 (06:00→22:28)
[2019-03-10] MEDS: NICOTINE 21 MG/24 HOURS TOPICAL PATCH TD SCH (10:03)
[2019-03-10] MEDS: PRENATAL VITAMINS W/ FOLIC ACID TABLET (FP) PO SCH (10:03)
--- NOTE | 2019-03-10 11:43 | PN ---
BHS CIWA - CIWA Score Nausea/Vomitin Muscle Tremors: 2 Anxiety: 2 Agitation: 1-Slight > Activity Paroxysmal Sweats: 1-Minimal Palms Moist Orientation: 0-Oriented Tacttile Disturbances: 0-None Auditory Disturbances: 0-None Visual Disturbances: 1-Very Mild Sensitivity Headache: 1-Very Mild CIWA-Ar Total Score: 10 BHS Progress Note (SOAP) Subjective: CO POOR SLEEP ANXIETY AND SHAKINESS Objective: 03/10/19 11:41 Vital Signs - 24 hr 03/09/19 03/09/19 03/10/19 13:33 21:36 00:30 Temperature 96.6 F L 97.1 F L Pulse Rate 83 90 Respiratory 18 18 18 Rate Blood Pressure 120/79 124/82 03/10/19 03/10/19 03/10/19 03:30 06:38 09:20 Temperature 97.6 F 97.2 F L Pulse Rate 60 72 Respiratory 18 18 18 Rate Blood Pressure 106/67 106/60 Laboratory Tests 03/09/19 03/09/19 03/09/19 07:40 07:40 07:40 WBC 8.9 RBC 4.68 Hgb 13.8 Hct 42.3 MCV 90.3 MCH 29.5 MCHC 32.6 RDW 13.3 Plt Count 195 MPV 12.2 H Sodium 142 Potassium 4.0 Chloride 110 H Carbon Dioxide 27 Anion Gap 5 L BUN 18.8 H Creatinine 0.9 Est GFR (CKD-EPI)AfAm 124.26 Est GFR (CKD-EPI)NonAf 107.21 Random Glucose 92 Calcium 8.4 L Total Bilirubin 0.3 AST 7 L ALT 18 Alkaline Phosphatase 53 Total Protein 6.2 L Albumin 3.3 L RPR Titer Nonreactive HIV 1&2 Antibody Screen HIV P24 Antigen 03/09/19 07:40 WBC RBC Hgb Hct MCV MCH MCHC RDW Plt Count MPV Sodium Potassium Chloride Carbon Dioxide Anion Gap BUN Creatinine Est GFR (CKD-EPI)AfAm Est GFR (CKD-EPI)NonAf Random Glucose Calcium Total Bilirubin AST ALT Alkaline Phosphatase Total Protein Albumin RPR Titer HIV 1&2 Antibody Screen Negative HIV P24 Antigen Negative ALERT AMBULATING AND INTERACTIVE Assessment: 03/10/19 11:42 ETOH DEP/ETOH WITHDRAWAL Plan: CONTINUE DETOX PROTOCOL AND ADJUNCT [id number]
[2019-03-10] MEDS: THIAMINE HCL 100 MG TABLET (FP) PO SCH (22:27)
[2019-03-11] MEDS ORDERED: chlordiazePOXIDE HCL 10 MG CAPSULE PO PRN (05:00)
[2019-03-11] MEDS: chlordiazePOXIDE HCL 10 MG CAPSULE PO SCH ×4 (05:26→22:07)
[2019-03-11] MEDS: NICOTINE 21 MG/24 HOURS TOPICAL PATCH TD SCH (10:43)
[2019-03-11] MEDS: PRENATAL VITAMINS W/ FOLIC ACID TABLET (FP) PO SCH (10:44)
--- NOTE | 2019-03-11 14:23 | PN ---
S CIWA - CIWA Score Nausea/Vomitin-Mild Nausea/No Vomiting Muscle Tremors: 3 Anxiety: 3 Agitation: 1-Slight > Activity Paroxysmal Sweats: 2 Orientation: 0-Oriented Tacttile Disturbances: 0-None Auditory Disturbances: 0-None Visual Disturbances: 0-None Headache: 0-None Present CIWA-Ar Total Score: 10 BHS Progress Note (SOAP) Subjective: Sweating, Poor appetite, Anxious, Tremors. Objective: PATIENT A & O X 3, OBSERVED AMBULATING ON UNIT UNASSISTED. IN NO ACUTE DISTRESS. 03/11/19 14:25 Vital Signs Temperature 99.4 F 03/11/19 13:06 Pulse Rate 85 03/11/19 13:06 Respiratory Rate 20 03/11/19 13:06 Blood Pressure 116/83 03/11/19 13:06 O2 Sat by Pulse Oximetry (%) Laboratory Tests 03/09/19 03/09/19 03/09/19 07:40 07:40 07:40 WBC 8.9 RBC 4.68 Hgb 13.8 Hct 42.3 MCV 90.3 MCH 29.5 MCHC 32.6 RDW 13.3 Plt Count 195 MPV 12.2 H Sodium 142 Potassium 4.0 Chloride 110 H Carbon Dioxide 27 Anion Gap 5 L BUN 18.8 H Creatinine 0.9 Est GFR (CKD-EPI)AfAm 124.26 Est GFR (CKD-EPI)NonAf 107.21 Random Glucose 92 Calcium 8.4 L Total Bilirubin 0.3 AST 7 L ALT 18 Alkaline Phosphatase 53 Total Protein 6.2 L Albumin 3.3 L RPR Titer Nonreactive HIV 1&2 Antibody Screen HIV P24 Antigen 03/09/19 07:40 WBC RBC Hgb Hct MCV MCH MCHC RDW Plt Count MPV Sodium Potassium Chloride Carbon Dioxide Anion Gap BUN Creatinine Est GFR (CKD-EPI)AfAm Est GFR (CKD-EPI)NonAf Random Glucose Calcium Total Bilirubin AST ALT Alkaline Phosphatase Total Protein Albumin RPR Titer HIV 1&2 Antibody Screen Negative HIV P24 Antigen Negative LABS NOTED. Assessment: 03/11/19 14:25 WITHDRAWAL SYMPTOMS. Plan: CONTINUE DETOX. INCREASE DAILY PO FLUID / WATER INTAKE. ENSURE PO FOR CALORIC SUPPLEMENTATION.
[2019-03-11] MEDS: COLLOIDAL OATMEAL 1 BAR EACH TP PRN (15:20)
[2019-03-11] MEDS: VITAMINS A AND D TOPICAL OINTMENT 60 GM TUBE TP PRN (17:19)
[2019-03-11] MEDS: THIAMINE HCL 100 MG TABLET (FP) PO SCH (22:07)
[2019-03-12] MEDS: chlordiazePOXIDE HCL 10 MG CAPSULE PO SCH ×2 (06:38→17:07)
[2019-03-12] MEDS: COLLOIDAL OATMEAL 1 BAR EACH TP PRN ×2 (08:48→22:54)
--- NOTE | 2019-03-12 09:25 | PN ---
[facility] CIWA - CIWA Score Nausea/Vomitin-Mild Nausea/No Vomiting Muscle Tremors: 1-None Visible, but [place] Anxiety: 1-Mildly Anxious Agitation: 1-Slight > Activity Paroxysmal Sweats: No Perspiration Orientation: 0-Oriented Tacttile Disturbances: 1-Very Mild Itch/Numbness Auditory Disturbances: 1-Very Mild Visual Disturbances: 0-None Headache: 1-Very Mild CIWA-Ar Total Score: 7 BHS Progress Note (SOAP) Subjective: alert,irritable,interrupted sleep Objective: 03/12/19 09:25 Vital Signs Temperature 98.1 F 03/12/19 09:14 Pulse Rate 86 03/12/19 09:14 Respiratory Rate 17 03/12/19 09:14 Blood Pressure 130/86 03/12/19 09:14 O2 Sat by Pulse Oximetry (%) Assessment: 03/12/19 09:25 withdrawal symptom Plan: continue detox,discharge in am
[2019-03-12] MEDS: PRENATAL VITAMINS W/ FOLIC ACID TABLET (FP) PO SCH (10:32)
[2019-03-12] MEDS: NICOTINE 21 MG/24 HOURS TOPICAL PATCH TD SCH (10:32)
[2019-03-12] MEDS: VITAMINS A AND D TOPICAL OINTMENT 60 GM TUBE TP PRN (18:07)
[2019-03-12 21:37] VITALS: BP 136/76; PULSE 85; TEMP 98.1
[2019-03-12] MEDS: THIAMINE HCL 100 MG TABLET (FP) PO SCH (22:15)
[2019-03-13] MEDS: chlordiazePOXIDE HCL 10 MG CAPSULE PO SCH (06:31)
--- NOTE | 2019-03-13 08:49 | DS ---
[facility] Detox Discharge Summary Admission Date: 03/09/19 Discharge Date: 03/13/19 - History Present History: Alcohol Dependence, Cannabis Dependence, Cocaine Dependence - Physical Exam Results Vital Signs: Vital Signs Temperature 98.1 F 03/12/19 21:37 Pulse Rate 85 03/12/19 21:37 Respiratory Rate 18 03/13/19 08:04 Blood Pressure 136/76 03/12/19 21:37 O2 Sat by Pulse Oximetry (%) - Treatment Hospital Course: Detox Protocol Followed, Detoxed Safely, Responded well, Discharged Condition Good, Rehab Referral Accepted - Medication Discharge Medications: Ambulatory Orders Salmeterol/Fluticasone [Advair 250Mcg/50Mcg -] 1 inh PO BID 06/05/17 - Diagnosis (1) Alcohol dependence with uncomplicated withdrawal Current Visit: Yes Status: Chronic (2) Cannabis dependence, uncomplicated Current Visit: Yes Status: Chronic (3) Cocaine dependence, uncomplicated Current Visit: Yes Status: Chronic (4) Nicotine dependence Current Visit: Yes Status: Chronic Qualifiers: Nicotine product type: cigarettes Substance use status: uncomplicated Qualified Code(s): F17.210 - Nicotine dependence, cigarettes, uncomplicated (5) Laceration of skin of face Current Visit: No Status: Acute Qualifiers: Encounter type: subsequent encounter Qualified Code(s): S01.81XD - Laceration without foreign body of other part of head, subsequent encounter (6) Laceration of thigh, left Current Visit: No Status: Acute Qualifiers: Encounter type: subsequent encounter Qualified Code(s): S71.112D - Laceration without foreign body, left thigh, subsequent encounter (7) Asthma Current Visit: No Status: Chronic Qualifiers: Asthma severity: unspecified severity Asthma persistence: unspecified Asthma complication type: uncomplicated Qualified Code(s): J45.909 - Unspecified asthma, uncomplicated - AMA Did Patient Leave Against Medical Advice: No (referred to [facility] inpatient rehab)
== END 2019-03-13 09:57 | disposition home or self-care (01) | DRG 774 ==
LOC: YASAS 17:30 → Y3N 03-09 01:45 → Y6N 03-11 20:29
PROVIDERS: ADMIT Surgery; ATTEND Surgery
PROC: HZ2ZZZZ Detoxification Services for Substance Abuse Treatment (ICD-10-PCS; principal; 2019-03-09)
DX: F10.230 Alcohol dependence with withdrawal, uncomplicated (principal); F14.20 Cocaine dependence, uncomplicated; F12.20 Cannabis dependence, uncomplicated; F17.210 Nicotine dependence, cigarettes, uncomplicated; J45.909 Unspecified asthma, uncomplicated
CPT/HCPCS: 36415; 80053; 85027; 86593; 87389

== ENCOUNTER 2019-03-29 13:50 | Inpatient (IN) | payer OTHER ==
[2019-03-29 14:55] VITALS: BMI 31.3
--- NOTE | 2019-03-29 16:26 | HP ---
CIWA Score Nausea/Vomitin Muscle Tremors: 3 Anxiety: 4-Mod. Anxious/Guarded Agitation: 2 Paroxysmal Sweats: 2 Orientation: 0-Oriented Tacttile Disturbances: 0-None Auditory Disturbances: 0-None Visual Disturbances: 2-Mild Sensitivity Headache: 0-None Present CIWA-Ar Total Score: 15 - Admission Criteria OASAS Guidelines: Admission for Medically Managed Detox: Requires at least one of the followin. CIWA greater than 12 2. Seizures within the past 24 hours 3. Delirium tremens within the past 24 hours 4. Hallucinations within the past 24 hours 5. Acute intervention needed for co occurring medical disorder 6. Acute intervention needed for co occurring psychiatric disorder 7. Severe withdrawal that cannot be handled at a lower level of care (continued vomiting, continued diarrhea, abnormal vital signs) requiring intravenous medication and/or fluids 8. Admission ROS S - HPI Chief Complaint: I came for detox and rehab im using too much Allergies/Adverse Reactions: Allergies Allergy/AdvReac Type Severity Reaction Status Date / Time No Known Allergies Allergy Verified 04/03/19 13:28 History of Present Illness: first drink age 14, became problematic and "uncontrollable" age 16. consequences include liking it too much spending money. feels he needs treatmernt"i dont like how i feel" drinking 4 pints daily Exam Limitations: No Limitations - Ebola screening Have you traveled outside of the country in the last 21 days: No Have you had contact with anyone from an Ebola affected area: No Have you been sick,other than usual withdrawal symptoms: No Do you have a fever: No - Review of Systems Constitutional: Loss of Appetite, Night Sweats, Changes in sleep, Weakness EENT: reports: Blurred Vision Respiratory: reports: Cough Cardiac: reports: No Symptoms Reported GI: reports: Nausea, Abdominal cramping : reports: Other Musculoskeletal: reports: Muscle Pain Integumentary: reports: Flushing, Sweating Neuro: reports: Headache, Tremors Endocrine: reports: No Symptoms Reported Hematology: reports: No Symptoms Reported Psychiatric: reports: Mood/Affect Appropiate, Anxious Other Systems: Reviewed and Negative Patient History - Patient Medical History Hx Anemia: No Hx Asthma: Yes (ADVAIR) Hx Chronic Obstructive Pulmonary Disease (COPD): No Hx Cancer: No Hx Cardiac Disorders: No Hx Congestive Heart Failure: No Hx Hypertension: No Hx Hypercholesterolemia: No Hx Pacemaker: No HX Cerebrovascular Accident: No Hx Seizures: No Hx Dementia: No Hx Diabetes: No (has had hyperglycemia) Hx Gastrointestinal Disorders: No Hx Liver Disease: No Hx Genitourinary Disorders: No Hx Sexually Transmitted Disorders: No Hx Renal Disease (ESRD): No Hx Thyroid Disease: No Hx Human Immunodeficiency Virus (HIV): No Hx Hepatitis C: No Hx Depression: No Hx Suicide Attempt: No Hx Bipolar Disorder: No Hx Schizophrenia: No - Patient Surgical History Past Surgical History: No Hx Neurologic Surgery: No Hx Cataract Extraction: No Hx Cardiac Surgery: No Hx Lung Surgery: No Hx Breast Surgery: No Hx Breast Biopsy: No Hx Abdominal Surgery: No Hx Appendectomy: No Hx Cholecystectomy: No Hx Genitourinary Surgery: No Hx Section: No Hx Orthopedic Surgery: No Anesthesia Reaction: No - PPD History Date: 01/21/19 Results: negative - Reproductive History Patient is a Female of Child Bearing Age (11 -55 yrs old): No - Smoking Cessation Smoking history: Current every day smoker Have you smoked in the past 12 months: No Aproximately how many cigarettes per day: 60 Cigars Per Day: 0 Hx Chewing Tobacco Use: No Initiated information on smoking cessation: Yes 'Breaking Loose' booklet given: 03/29/19 - Substance & Tx. History Hx Alcohol Use: Yes Hx Substance Use: Yes Substance Use Type: Alcohol Hx Substance Use Treatment: Yes - Substances abused Alcohol Substance route: Oral Frequency: Daily Amount used: 4 PINTS VODKA Age of first use: 14 Date of last use: 03/29/19 Family Disease History - Family Disease History Family Disease History: Other: Mother (ALCOHOLISM) Admission Physical Exam S - Vital Signs Vital Signs: Vital Signs - 24 hr 03/29/19 03/29/19 14:51 15:28 Temperature 97.5 F L 97.5 F L Pulse Rate 77 77 Respiratory 16 16 Rate Blood Pressure 115/73 115/73 - Physical General Appearance: Yes: Within Normal Limits, Sweating, Anxious HEENTM: Yes: Normal Voice, Nasal Congestion Respiratory: Yes: Lungs Clear Neck: Yes: Within Normal Limits Breast: Yes: Other (gnecomastia) Cardiology: Yes: Regular Rhythm, Regular Rate Abdominal: Yes: Within Normal Limits Genitourinary: Yes: Within Normal Limits Back: Yes: Within Normal Limits, Normal Inspection Musculoskeletal: Yes: full range of Motion, Gait Steady Extremities: Yes: Other (varicosities) Neurological: Yes: Fully Oriented, Normal Response Integumentary: Yes: Other (diffuse trumatic scarring) Lymphatic: Yes: Within Normal Limits - Diagnostic (1) Hyperglycemia Status: Acute (2) Laceration of skin of face Status: Acute Qualifiers: Encounter type: subsequent encounter Qualified Code(s): S01.81XD - Laceration without foreign body of other part of head, subsequent encounter (3) Laceration of thigh, left Status: Acute Qualifiers: Encounter type: subsequent encounter Qualified Code(s): S71.112D - Laceration without foreign body, left thigh, subsequent encounter (4) Alcohol dependence with uncomplicated withdrawal Status: Chronic (5) Nicotine dependence Status: Chronic Qualifiers: Nicotine product type: cigarettes Substance use status: uncomplicated Qualified Code(s): F17.210 - Nicotine dependence, cigarettes, uncomplicated Cleared for Admission S - Detox or Rehab [facility] Level of Care: Medically Managed Detox Regimen/Protocol: Librium Claeared for Rehab Admission: No Breathalyzer - Breathalyzer Breathalyzer: 0 Urine Drug Screen - Test Device Lot number: [id number] Expiration date: 11/22/20 - Control Is test valid?: Yes - Results Drug screen NEGATIVE: No Urine drug screen results: JOSE-Cocaine, BZO-Benzodiazepines Inpatient Rehab Admission - Rehab Decision to Admit Inpatient rehab admission?: No
[2019-03-29] MEDS ORDERED: MAGNESIUM HYDROX 2400MG/30ML ORAL SUSPENSION 30 ML CUP PO PRN (16:34)
[2019-03-29] MEDS ORDERED: MAGNESIUM CITRATE 300 ML BOTTLE PO PRN (16:34)
[2019-03-29] MEDS ORDERED: BISMUTH SUBSALICYLATE 524 MG/30 ML UD PO PRN (16:34)
[2019-03-29] MEDS ORDERED: METHOCARBAMOL 500 MG TABLET PO PRN (16:34)
[2019-03-29] MEDS ORDERED: hydrOXYzine PAMOATE 25 MG CAPSULE (FP) PO PRN (16:34)
[2019-03-29] MEDS ORDERED: IBUPROFEN 400 MG TABLET (FP) PO PRN (16:34)
[2019-03-29] MEDS ORDERED: MENTHOL/PHENOL 1 EACH UD MM PRN (16:34)
[2019-03-29] MEDS ORDERED: chlordiazePOXIDE HCL 25 MG CAPSULE PO PRN (16:34)
[2019-03-29] MEDS ORDERED: ACETAMINOPHEN 325 MG TABLET (FP) PO PRN ×2 (16:34)
[2019-03-29] MEDS ORDERED: MAG HYDROX/AL HYDROX/SIMETH 30 ML UNIT-DOSE CUP PO PRN (16:34)
[2019-03-29] MEDS ORDERED: NICOTINE POLACRILEX 4 MG GUM BUC PRN (16:34)
[2019-03-29] MEDS: chlordiazePOXIDE HCL 25 MG CAPSULE PO SCH ×2 (18:37→22:38)
[2019-03-29] MEDS: NICOTINE 21 MG/24 HOURS TOPICAL PATCH TD SCH (18:37)
[2019-03-29] MEDS: THIAMINE HCL 100 MG TABLET (FP) PO SCH (22:38)
[2019-03-29] MEDS: FLUTICASONE/SALMETEROL 100 MCG/50 MCG DISKUS IH SCH (22:40)
[2019-03-30] MEDS: chlordiazePOXIDE HCL 25 MG CAPSULE PO SCH ×4 (06:07→23:44)
[2019-03-30] MEDS: FLUTICASONE/SALMETEROL 100 MCG/50 MCG DISKUS IH SCH ×2 (11:24→23:43)
[2019-03-30] MEDS: PRENATAL VITAMINS W/ FOLIC ACID TABLET (FP) PO SCH (11:24)
[2019-03-30] MEDS: NICOTINE 21 MG/24 HOURS TOPICAL PATCH TD SCH (11:24)
--- NOTE | 2019-03-30 13:27 | PN ---
S CIWA - CIWA Score Nausea/Vomitin-No Nausea/No Vomiting Muscle Tremors: None Anxiety: 3 Agitation: 0-Normal Activity Paroxysmal Sweats: 3 Orientation: 0-Oriented Tacttile Disturbances: 0-None Auditory Disturbances: 2-Mild Harshness/Frighten Visual Disturbances: 3-Moderate Sensitivity Headache: 0-None Present CIWA-Ar Total Score: 11 S Progress Note (SOAP) Subjective: Anxious, Sweating, Tremors. Objective: PATIENT A & O X 3. IN NO ACUTE DISTRESS. 03/30/19 13:30 Vital Signs Temperature 97.5 F L 03/30/19 06:09 Pulse Rate 65 03/30/19 06:09 Respiratory Rate 18 03/30/19 06:30 Blood Pressure 99/68 03/30/19 06:09 O2 Sat by Pulse Oximetry (%) Laboratory Tests 03/29/19 14:33 POC Glucometer 151 PATIENT REFUSED TO HAVE ADMISSION LABS DRAWN. 03/30/19 13:30 Assessment: 03/30/19 13:31 WITHDRAWAL SYMPTOMS. Plan: CONTINUE DETOX. INCREASE DAILY PO WATER INTAKE.
--- NOTE | 2019-03-30 17:55 | PN ---
BHS Progress Note Note: call by nurse bgm is [phone], will do repeat bgm bgm monitoring achs fasting bgm in am,cbc,cmp in am close monitoring og bgm
[2019-03-30] MEDS ORDERED: INSULIN SLIDING SCALE (NOVOLOG) 1 VIAL SQ SCH (22:00)
[2019-03-30] MEDS: THIAMINE HCL 100 MG TABLET (FP) PO SCH (23:44)
[2019-03-31] MEDS: chlordiazePOXIDE HCL 25 MG CAPSULE PO SCH ×4 (06:28→22:07)
[2019-03-31] MEDS: FLUTICASONE/SALMETEROL 100 MCG/50 MCG DISKUS IH SCH ×2 (10:22→22:08)
[2019-03-31] MEDS: PRENATAL VITAMINS W/ FOLIC ACID TABLET (FP) PO SCH (10:23)
[2019-03-31] MEDS: NICOTINE 21 MG/24 HOURS TOPICAL PATCH TD SCH (10:23)
--- NOTE | 2019-03-31 11:29 | PN ---
S CIWA - CIWA Score Nausea/Vomitin-No Nausea/No Vomiting Muscle Tremors: 2 Anxiety: 2 Agitation: 2 Paroxysmal Sweats: No Perspiration Orientation: 1-Uncertain about Date Tacttile Disturbances: 0-None Auditory Disturbances: 0-None Visual Disturbances: 0-None Headache: 0-None Present CIWA-Ar Total Score: 7 BHS Progress Note (SOAP) Subjective: mild tremor alert speech clearly patient requests job checker for his newly diagnosed diabetes patient prefers none processed vegetable with Wolof dressing "many cucumber" without sauces no meat no tomato potato chip dietary informed Objective: 03/31/19 11:28 Vital Signs Temperature 98.8 F 03/31/19 09:28 Pulse Rate 75 03/31/19 09:28 Respiratory Rate 18 03/31/19 09:28 Blood Pressure 128/81 03/31/19 09:28 O2 Sat by Pulse Oximetry (%) Laboratory Last Values POC Glucometer 309 UNITS (80-120) 03/31/19 09:00 03/31/19 11:29 lab see 02/2019 Assessment: 03/31/19 11:29 alcohol withdrawal sx Plan: continue alcohol detox
[2019-03-31] MEDS: COLLOIDAL OATMEAL 1 BAR EACH TP PRN (11:46)
[2019-03-31] MEDS: THIAMINE HCL 100 MG TABLET (FP) PO SCH (22:07)
[2019-03-31] MEDS: CLOTRIMAZOLE 1% CREAM 15 GM TUBE TP SCH (22:07)
[2019-03-31] MEDS: MELATONIN 5 MG TABLETS PO PRN (22:08)
[2019-04-01] MEDS ORDERED: chlordiazePOXIDE HCL 10 MG CAPSULE PO PRN
[2019-04-01] MEDS: chlordiazePOXIDE HCL 10 MG CAPSULE PO SCH ×4 (07:01→22:53)
[2019-04-01] MEDS: COLLOIDAL OATMEAL 1 BAR EACH TP PRN (10:14)
[2019-04-01] MEDS: PRENATAL VITAMINS W/ FOLIC ACID TABLET (FP) PO SCH (10:15)
[2019-04-01] MEDS: NICOTINE 21 MG/24 HOURS TOPICAL PATCH TD SCH (10:15)
[2019-04-01] MEDS: FLUTICASONE/SALMETEROL 100 MCG/50 MCG DISKUS IH SCH ×2 (10:15→22:52)
[2019-04-01] MEDS: CLOTRIMAZOLE 1% CREAM 15 GM TUBE TP SCH ×2 (10:15→22:52)
--- NOTE | 2019-04-01 11:46 | PN ---
S CIWA - CIWA Score Nausea/Vomitin-No Nausea/No Vomiting Muscle Tremors: 2 Anxiety: 1-Mildly Anxious Agitation: 2 Paroxysmal Sweats: No Perspiration Orientation: 0-Oriented Tacttile Disturbances: 0-None Auditory Disturbances: 0-None Visual Disturbances: 0-None Headache: 0-None Present CIWA-Ar Total Score: 5 BHS Progress Note (SOAP) Subjective: less irritable today cooperative with diabetes dietary regimen less tremor doing ok with librium detox regimen Objective: 04/01/19 11:46 Vital Signs Temperature 97.2 F L 04/01/19 09:12 Pulse Rate 76 04/01/19 09:12 Respiratory Rate 18 04/01/19 09:12 Blood Pressure 110/74 04/01/19 09:12 O2 Sat by Pulse Oximetry (%) Laboratory Last Values POC Glucometer 342 UNITS (80-120) 03/31/19 20:33 04/01/19 11:46 see lab report on 02/2019 Assessment: 04/01/19 11:47 alcohol withdrawal sx Plan: continue alcohol detox
--- NOTE | 2019-04-01 22:09 | PN ---
S Progress Note Note: Patient is refusing insulin coverage. States his DM is diet controlled. CMP POC Glucometer 425 UNITS (80-120) 04/01/19 20:55 Patient's BMI is 31.3. Nutritional supplement (Glucerna) is being discontinued.
[2019-04-01] MEDS: THIAMINE HCL 100 MG TABLET (FP) PO SCH (22:53)
[2019-04-02] MEDS: chlordiazePOXIDE HCL 10 MG CAPSULE PO SCH ×2 (07:21→18:12)
[2019-04-02] MEDS: CLOTRIMAZOLE 1% CREAM 15 GM TUBE TP SCH ×2 (10:44→22:51)
[2019-04-02] MEDS: FLUTICASONE/SALMETEROL 100 MCG/50 MCG DISKUS IH SCH ×2 (10:44→22:43)
[2019-04-02] MEDS: PRENATAL VITAMINS W/ FOLIC ACID TABLET (FP) PO SCH (10:45)
[2019-04-02] MEDS: NICOTINE 21 MG/24 HOURS TOPICAL PATCH TD SCH (10:45)
[2019-04-02] MEDS: COLLOIDAL OATMEAL 1 BAR EACH TP PRN (15:17)
--- NOTE | 2019-04-02 15:28 | PN ---
[facility] CIWA - CIWA Score Nausea/Vomitin-No Nausea/No Vomiting Muscle Tremors: 1-None Visible, but [place] Anxiety: 0-No Anxiety, at Ease Agitation: 0-Normal Activity Paroxysmal Sweats: No Perspiration Orientation: 1-Uncertain about Date Tacttile Disturbances: 0-None Auditory Disturbances: 0-None Visual Disturbances: 0-None Headache: 0-None Present CIWA-Ar Total Score: 2 BHS Progress Note (SOAP) Subjective: ambulating on hallway preoccupied by food health teaching on diabetes insulin coverage as well as dietary regimen patient demands more food encourage the patient consider insulin Objective: 04/02/19 15:28 Vital Signs Temperature 96.3 F L 04/02/19 13:02 Pulse Rate 54 L 04/02/19 13:02 Respiratory Rate 18 04/02/19 13:02 Blood Pressure 112/74 04/02/19 13:02 O2 Sat by Pulse Oximetry (%) Laboratory Last Values POC Glucometer 425 UNITS (80-120) 04/01/19 20:55 04/02/19 15:28 lab see 02/2019 Assessment: 04/02/19 15:29 alcohol withdrawal sx discuss alcohol related hyperglycemia Plan: continue alcohol detox
[2019-04-02] MEDS: MELATONIN 5 MG TABLETS PO PRN (22:44)
[2019-04-02] MEDS: THIAMINE HCL 100 MG TABLET (FP) PO SCH (22:44)
[2019-04-03] MEDS ORDERED: chlordiazePOXIDE HCL 10 MG CAPSULE PO ONE (05:00)
[2019-04-03 09:25] VITALS: BP 111/81; PULSE 90; TEMP 97.8
[2019-04-03] MEDS: PRENATAL VITAMINS W/ FOLIC ACID TABLET (FP) PO SCH (10:59)
[2019-04-03] MEDS: NICOTINE 21 MG/24 HOURS TOPICAL PATCH TD SCH (10:59)
[2019-04-03] MEDS: CLOTRIMAZOLE 1% CREAM 15 GM TUBE TP SCH (10:59)
[2019-04-03] MEDS: FLUTICASONE/SALMETEROL 100 MCG/50 MCG DISKUS IH SCH (11:00)
--- NOTE | 2019-04-03 13:59 | DS ---
[facility] Detox Discharge Summary Admission Date: 03/29/19 Discharge Date: 04/03/19 - History Present History: Alcohol Dependence Additional Comments: 38 years old male admitted on 03/29/19 for alcohol withdrawal stabilization completed detox regimen [facility] - Physical Exam Results Vital Signs: Vital Signs Temperature 97.8 F 04/03/19 09:24 Pulse Rate 90 04/03/19 09:24 Respiratory Rate 20 04/03/19 09:24 Blood Pressure 111/81 04/03/19 09:24 O2 Sat by Pulse Oximetry (%) Pertinent Admission Physical Exam Findings: alcohol withdrawal sx Laboratory Last Values POC Glucometer 393 UNITS (80-120) 04/02/19 20:53 see lab 02/2019 - Treatment Hospital Course: Detox Protocol Followed, Detoxed Safely, Responded well, Discharged Condition Good, Rehab Referral Accepted Patient has Accepted a Rehab Referral to: min - Medication Discharge Medications: Ambulatory Orders Salmeterol/Fluticasone [Advair 250Mcg/50Mcg -] 1 inh PO BID 06/05/17 - Diagnosis (1) Diabetes mellitus type II, uncontrolled Status: Chronic Qualifiers: Glycemic state: with hyperglycemia Qualified Code(s): E11.65 - Type 2 diabetes mellitus with hyperglycemia (2) Alcohol dependence with uncomplicated withdrawal Status: Acute (3) Asthma Status: Chronic Qualifiers: Asthma severity: mild Asthma persistence: intermittent Asthma complication type: uncomplicated Qualified Code(s): J45.20 - Mild intermittent asthma, uncomplicated (4) Nicotine dependence Status: Acute Qualifiers: Nicotine product type: cigarettes Substance use status: in withdrawal Qualified Code(s): F17.213 - Nicotine dependence, cigarettes, with withdrawal - AMA Did Patient Leave Against Medical Advice: No
== END 2019-04-03 13:25 | disposition home or self-care (01) | DRG 774 ==
LOC: YASAS 13:50 → Y3N 17:14
PROVIDERS: ADMIT Surgery; ATTEND Surgery
PROC: HZ2ZZZZ Detoxification Services for Substance Abuse Treatment (ICD-10-PCS; principal; 2019-03-29)
DX: F10.230 Alcohol dependence with withdrawal, uncomplicated (principal); F14.20 Cocaine dependence, uncomplicated; F17.210 Nicotine dependence, cigarettes, uncomplicated; F19.282 Other psychoactive substance dependence with psychoactive substance-induced sleep disorder; F39 Unspecified mood [affective] disorder; D69.6 Thrombocytopenia, unspecified; J45.909 Unspecified asthma, uncomplicated; E78.5 Hyperlipidemia, unspecified; R41.83 Borderline intellectual functioning; B35.3 Tinea pedis
CPT/HCPCS: 82962

== ENCOUNTER 2019-04-03 12:29 | Inpatient (IN) | payer OTHER ==
[2019-04-03] MEDS ORDERED: NICOTINE POLACRILEX 2 MG GUM BC PRN ×2 (14:00→14:06)
[2019-04-03] MEDS ORDERED: MAG HYDROX/AL HYDROX/SIMETH 30 ML UNIT-DOSE CUP PO PRN (14:00)
[2019-04-03] MEDS ORDERED: NICOTINE 14 MG/24 HOURS TOPICAL PATCH TD PRN ×2 (14:00→14:06)
[2019-04-03] MEDS ORDERED: IBUPROFEN 400 MG TABLET (FP) PO PRN (14:00)
[2019-04-03] MEDS ORDERED: LOPERAMIDE HCL 2 MG CAPSULE PO PRN (14:00)
[2019-04-03] MEDS ORDERED: ACETAMINOPHEN 325 MG TABLET (FP) PO PRN (14:00)
[2019-04-03] MEDS ORDERED: MAGNESIUM HYDROX 2400MG/30ML ORAL SUSPENSION 30 ML CUP PO PRN (14:00)
[2019-04-03] MEDS ORDERED: guaiFENesin 200 MG/10 ML 10 ML UNIT-DOSE CUPS PO PRN (14:00)
[2019-04-03] MEDS ORDERED: P-EPHED 60MG/TRIPROLIDI 2.5MG TABLET PO PRN (14:00)
[2019-04-03] MEDS ORDERED: MAGNESIUM CITRATE 300 ML BOTTLE PO PRN (14:00)
--- NOTE | 2019-04-03 14:00 | HP ---
[facility] Rehab Assess/Revision - Admission History Admitted to Rehab from: Shaina Saxena Date of Admission to Rehab: 04/03/19 - Vital signs Vital Signs: Vital Signs Period Temp Pulse Resp BP Sys/Fry Pulse Ox Last 24 Hr 98.3 F 89 20 131/84 - Findings Detox History & Physical reviewed: Yes Concur with findings: Yes Comments/Additional Findings: transferred from detox to rehab admission as per protocol Inpatient Rehab Admission - Rehab Decision to Admit Inpatient rehab admission?: Yes - Initial Determination Are CD services needed?: Yes Free of communicable disease: Yes Not in need of hospitalization: Yes - Rehab Admission Criteria Previous failed treatment: Yes Poor recovery environment: Yes Comorbidities: Yes Lacks judgement: No Patient is meeting Inpatient Rehab admission criteria:: Yes
[2019-04-03] MEDS: INSULIN SLIDING SCALE (NOVOLOG) 1 VIAL SQ SCH ×2 (17:15→21:36)
[2019-04-03] MEDS: THIAMINE HCL 100 MG TABLET (FP) PO SCH (21:36)
[2019-04-03] MEDS ORDERED: MELATONIN 5 MG TABLETS PO PRN (22:00)
[2019-04-03] MEDS ORDERED: PATIENT'S OWN MEDICATION (NON-FORMULARY) (Salmeterol/Fluticasone [Advair 250mcg/50mcg -] 1 PO SCH (22:00)
[2019-04-04] MEDS: INSULIN SLIDING SCALE (NOVOLOG) 1 VIAL SQ SCH ×4 (07:35→22:00)
[2019-04-04] MEDS: PRENATAL VITAMINS W/ FOLIC ACID TABLET (FP) PO SCH (10:01)
[2019-04-04] MEDS ORDERED: MINERAL OIL/PETROLAT/WATER TOPICAL CREAM 113 GM JAR TP PRN (12:17)
[2019-04-04] MEDS ORDERED: PT OWN MED DRAWER 7, Y5N ONE (16:17)
[2019-04-04] MEDS ORDERED: INSULIN (NOVOLOG) ASPART 100 UNITS/ML 10ML VIAL ONE (16:34)
[2019-04-04] MEDS: COLLOIDAL OATMEAL 1 BAR EACH TP PRN (18:24)
[2019-04-04] MEDS: THIAMINE HCL 100 MG TABLET (FP) PO SCH (21:59)
[2019-04-05] MEDS: INSULIN SLIDING SCALE (NOVOLOG) 1 VIAL SQ SCH ×5 (07:41→21:21)
[2019-04-05] MEDS: PRENATAL VITAMINS W/ FOLIC ACID TABLET (FP) PO SCH (10:11)
[2019-04-05] MEDS: COLLOIDAL OATMEAL 1 BAR EACH TP PRN (10:11)
[2019-04-05] MEDS ORDERED: PT OWN MED DRAWER 7, Y5N ONE ×3 (10:14→11:12)
[2019-04-05] MEDS: SALMETEROL IH SCH ×2 (11:02→21:20)
[2019-04-05] MEDS: FLUTICASONE IH SCH ×2 (11:02→21:20)
[2019-04-05] MEDS: THIAMINE HCL 100 MG TABLET (FP) PO SCH (21:20)
[2019-04-06] MEDS: INSULIN SLIDING SCALE (NOVOLOG) 1 VIAL SQ SCH ×4 (07:34→22:33)
[2019-04-06] MEDS: PRENATAL VITAMINS W/ FOLIC ACID TABLET (FP) PO SCH (09:59)
[2019-04-06] MEDS: FLUTICASONE IH SCH ×2 (10:00→22:33)
[2019-04-06] MEDS: SALMETEROL IH SCH ×2 (10:00→22:33)
[2019-04-06] MEDS: THIAMINE HCL 100 MG TABLET (FP) PO SCH (22:38)
[2019-04-07] MEDS: INSULIN SLIDING SCALE (NOVOLOG) 1 VIAL SQ SCH ×4 (07:46→21:23)
[2019-04-07] MEDS: SALMETEROL IH SCH ×2 (10:03→21:24)
[2019-04-07] MEDS: PRENATAL VITAMINS W/ FOLIC ACID TABLET (FP) PO SCH (10:03)
[2019-04-07] MEDS: FLUTICASONE IH SCH ×2 (10:03→21:24)
[2019-04-07] MEDS ORDERED: PT OWN MED DRAWER 7, Y5N ONE ×3 (10:04→23:40)
[2019-04-07] MEDS: COLLOIDAL OATMEAL 1 BAR EACH TP PRN (10:05)
[2019-04-07] MEDS: THIAMINE HCL 100 MG TABLET (FP) PO SCH (21:24)
[2019-04-08] MEDS: INSULIN SLIDING SCALE (NOVOLOG) 1 VIAL SQ SCH ×4 (07:16→22:05)
[2019-04-08] MEDS: PRENATAL VITAMINS W/ FOLIC ACID TABLET (FP) PO SCH (09:24)
[2019-04-08] MEDS: TOLNAFTATE 1% CREAM 15 GM TUBE TP SCH ×2 (09:25→22:05)
[2019-04-08] MEDS: SALMETEROL IH SCH ×2 (09:26→22:05)
[2019-04-08] MEDS: FLUTICASONE IH SCH ×2 (09:26→22:05)
[2019-04-08] MEDS: COLLOIDAL OATMEAL 1 BAR EACH TP PRN (15:09)
[2019-04-08] MEDS: THIAMINE HCL 100 MG TABLET (FP) PO SCH (22:04)
[2019-04-09] MEDS: INSULIN SLIDING SCALE (NOVOLOG) 1 VIAL SQ SCH ×4 (07:02→22:59)
[2019-04-09] MEDS: TOLNAFTATE 1% CREAM 15 GM TUBE TP SCH ×2 (10:46→23:00)
[2019-04-09] MEDS: FLUTICASONE IH SCH ×2 (10:46→22:59)
[2019-04-09] MEDS: SALMETEROL IH SCH ×2 (10:46→22:59)
[2019-04-09] MEDS: PRENATAL VITAMINS W/ FOLIC ACID TABLET (FP) PO SCH (10:46)
[2019-04-09] MEDS: THIAMINE HCL 100 MG TABLET (FP) PO SCH (23:00)
[2019-04-10] MEDS: INSULIN SLIDING SCALE (NOVOLOG) 1 VIAL SQ SCH ×4 (07:10→21:51)
[2019-04-10] MEDS ORDERED: PT OWN MED DRAWER 7, Y5N ONE ×2 (09:04→23:46)
[2019-04-10] MEDS: SALMETEROL IH SCH ×2 (10:40→21:51)
[2019-04-10] MEDS: PRENATAL VITAMINS W/ FOLIC ACID TABLET (FP) PO SCH (10:40)
[2019-04-10] MEDS: FLUTICASONE IH SCH ×2 (10:40→21:51)
[2019-04-10] MEDS: TOLNAFTATE 1% CREAM 15 GM TUBE TP SCH ×2 (10:40→21:51)
[2019-04-10] MEDS: COLLOIDAL OATMEAL 1 BAR EACH TP PRN (13:37)
[2019-04-10] MEDS: THIAMINE HCL 100 MG TABLET (FP) PO SCH (21:50)
[2019-04-10] MEDS: METHYL SALICYLATE/MENTHOL OINT 30 GM TUBE TP SCH (23:56)
[2019-04-11] MEDS: INSULIN SLIDING SCALE (NOVOLOG) 1 VIAL SQ SCH ×4 (07:14→22:57)
[2019-04-11] MEDS ORDERED: PT OWN MED DRAWER 7, Y5N ONE ×4 (08:35→22:46)
[2019-04-11] MEDS: SALMETEROL IH SCH ×2 (11:25→22:58)
[2019-04-11] MEDS: PRENATAL VITAMINS W/ FOLIC ACID TABLET (FP) PO SCH (11:25)
[2019-04-11] MEDS: FLUTICASONE IH SCH ×2 (11:25→22:58)
[2019-04-11] MEDS: METHYL SALICYLATE/MENTHOL OINT 30 GM TUBE TP SCH ×2 (11:25→22:57)
[2019-04-11] MEDS: TOLNAFTATE 1% CREAM 15 GM TUBE TP SCH ×2 (11:25→22:57)
[2019-04-11] MEDS: THIAMINE HCL 100 MG TABLET (FP) PO SCH (22:45)
[2019-04-12] MEDS: INSULIN SLIDING SCALE (NOVOLOG) 1 VIAL SQ SCH ×4 (07:05→21:27)
[2019-04-12] MEDS: PRENATAL VITAMINS W/ FOLIC ACID TABLET (FP) PO SCH (10:10)
[2019-04-12] MEDS: METHYL SALICYLATE/MENTHOL OINT 30 GM TUBE TP SCH ×2 (10:11→21:27)
[2019-04-12] MEDS: SALMETEROL IH SCH ×2 (10:11→21:28)
[2019-04-12] MEDS: TOLNAFTATE 1% CREAM 15 GM TUBE TP SCH ×2 (10:11→22:15)
[2019-04-12] MEDS: FLUTICASONE IH SCH ×2 (10:11→21:28)
[2019-04-12] MEDS: THIAMINE HCL 100 MG TABLET (FP) PO SCH (21:27)
[2019-04-13] MEDS: INSULIN SLIDING SCALE (NOVOLOG) 1 VIAL SQ SCH ×4 (07:01→22:23)
[2019-04-13] MEDS: METHYL SALICYLATE/MENTHOL OINT 30 GM TUBE TP SCH ×2 (10:40→22:23)
[2019-04-13] MEDS: TOLNAFTATE 1% CREAM 15 GM TUBE TP SCH ×2 (10:40→22:24)
[2019-04-13] MEDS: FLUTICASONE IH SCH ×2 (10:40→22:23)
[2019-04-13] MEDS: SALMETEROL IH SCH ×2 (10:40→22:23)
[2019-04-13] MEDS: PRENATAL VITAMINS W/ FOLIC ACID TABLET (FP) PO SCH (10:40)
[2019-04-13] MEDS ORDERED: INSULIN (NOVOLOG) ASPART 100 UNITS/ML 10ML VIAL ONE (16:26)
[2019-04-13] MEDS: THIAMINE HCL 100 MG TABLET (FP) PO SCH (22:24)
[2019-04-14] MEDS: INSULIN SLIDING SCALE (NOVOLOG) 1 VIAL SQ SCH ×4 (07:02→22:12)
[2019-04-14] MEDS: PRENATAL VITAMINS W/ FOLIC ACID TABLET (FP) PO SCH (10:47)
[2019-04-14] MEDS: FLUTICASONE IH SCH ×2 (10:48→22:13)
[2019-04-14] MEDS: TOLNAFTATE 1% CREAM 15 GM TUBE TP SCH ×2 (10:48→22:12)
[2019-04-14] MEDS: SALMETEROL IH SCH ×2 (10:48→22:13)
[2019-04-14] MEDS: METHYL SALICYLATE/MENTHOL OINT 30 GM TUBE TP SCH ×2 (10:48→22:12)
[2019-04-14] MEDS: THIAMINE HCL 100 MG TABLET (FP) PO SCH (22:11)
[2019-04-15] MEDS: INSULIN SLIDING SCALE (NOVOLOG) 1 VIAL SQ SCH ×4 (06:40→22:01)
[2019-04-15 10:24] VITALS: BP 119/61; PULSE 67; TEMP 97.7
[2019-04-15] MEDS: FLUTICASONE IH SCH ×2 (10:49→22:01)
[2019-04-15] MEDS: PRENATAL VITAMINS W/ FOLIC ACID TABLET (FP) PO SCH (10:49)
[2019-04-15] MEDS: METHYL SALICYLATE/MENTHOL OINT 30 GM TUBE TP SCH ×2 (10:49→22:01)
[2019-04-15] MEDS: SALMETEROL IH SCH ×2 (10:49→22:01)
[2019-04-15] MEDS: TOLNAFTATE 1% CREAM 15 GM TUBE TP SCH ×2 (10:50→22:01)
[2019-04-15] MEDS: THIAMINE HCL 100 MG TABLET (FP) PO SCH (22:01)
[2019-04-16] MEDS: INSULIN SLIDING SCALE (NOVOLOG) 1 VIAL SQ SCH ×4 (07:10→21:54)
[2019-04-16] MEDS ORDERED: PT OWN MED DRAWER 7, Y5N ONE ×2 (11:06→11:12)
[2019-04-16] MEDS: TOLNAFTATE 1% CREAM 15 GM TUBE TP SCH ×2 (11:07→21:53)
[2019-04-16] MEDS: COLLOIDAL OATMEAL 1 BAR EACH TP PRN (11:07)
[2019-04-16] MEDS: PRENATAL VITAMINS W/ FOLIC ACID TABLET (FP) PO SCH (11:08)
[2019-04-16] MEDS: METHYL SALICYLATE/MENTHOL OINT 30 GM TUBE TP SCH ×2 (11:10→21:54)
[2019-04-16] MEDS: SALMETEROL IH SCH ×2 (11:10→21:54)
[2019-04-16] MEDS: FLUTICASONE IH SCH ×2 (11:10→21:54)
[2019-04-16] MEDS: THIAMINE HCL 100 MG TABLET (FP) PO SCH (21:52)
[2019-04-17] MEDS: INSULIN SLIDING SCALE (NOVOLOG) 1 VIAL SQ SCH ×4 (06:54→16:30)
[2019-04-17] MEDS: SALMETEROL IH SCH (10:11)
[2019-04-17] MEDS: METHYL SALICYLATE/MENTHOL OINT 30 GM TUBE TP SCH (10:11)
[2019-04-17] MEDS: TOLNAFTATE 1% CREAM 15 GM TUBE TP SCH (10:11)
[2019-04-17] MEDS: PRENATAL VITAMINS W/ FOLIC ACID TABLET (FP) PO SCH (10:11)
[2019-04-17] MEDS: FLUTICASONE IH SCH (10:11)
[2019-04-17] MEDS: MENTHOL/PHENOL 1 EACH UD MM PRN (15:35)
[2019-04-18] MEDS: SALMETEROL IH SCH ×2 (00:02→09:49)
[2019-04-18] MEDS: METHYL SALICYLATE/MENTHOL OINT 30 GM TUBE TP SCH ×2 (00:02→09:49)
[2019-04-18] MEDS: FLUTICASONE IH SCH ×2 (00:02→09:49)
[2019-04-18] MEDS: THIAMINE HCL 100 MG TABLET (FP) PO SCH (00:03)
[2019-04-18] MEDS: TOLNAFTATE 1% CREAM 15 GM TUBE TP SCH ×2 (00:03→09:49)
[2019-04-18] MEDS: INSULIN SLIDING SCALE (NOVOLOG) 1 VIAL SQ SCH ×3 (00:03→11:59)
[2019-04-18] MEDS: PRENATAL VITAMINS W/ FOLIC ACID TABLET (FP) PO SCH (09:49)
--- NOTE | 2019-04-18 10:52 | PN ---
S Progress Note Note: received phone called indicated that from [facility] needed review encourage the caller to discuss issue with counselor 3W
[2019-04-18] MEDS: MENTHOL/PHENOL 1 EACH UD MM PRN (11:12)
--- NOTE | 2019-04-18 12:09 | PN ---
S Progress Note (SOAP) Subjective: Patient to be discharged tomorrow. Hospital course: Patient attended groups, had an individual session with his counselor. Patient made satisfactory progress with his recovery. He managed his DM2 with diet and was not interested in taking anti-diabetic medication or insulin. Objective: Physical: general: appropriate, no apparent distress Skin: clear, color consistent throughout trunk and extremities HEENTM: PERRLA, normocephalic Lungs: clear Heart: S1 S2 audible Breast: gynomastia Abd: +BS, obese Neuo: CN 2-12 intact, no neurological deficits noted MSK: spine aligned, full ROM, full weight bearing, gait steady. 04/18/19 12:17 04/18/19 12:19 Vital Signs (72 hours) 04/16/19 04/16/19 04/17/19 00:30 03:30 00:30 Respiratory 18 18 18 Rate 04/17/19 04/17/19 04/18/19 03:30 06:35 00:30 Respiratory 18 18 18 Rate 04/18/19 03:30 Respiratory 18 Rate Assessment: Medically stable for discharge, no on-going mental health or medical issues Discharge Dx: ETOH dependence Cocaine dependence Asthma DM2, uncontrolled 04/18/19 12:19 Plan: On-going continuation of care: Patient is seeking a bed for manager intermediate rehab at [facility] or [facility]. He will stay in contact with [facility] for bed availability.
== END 2019-04-18 13:30 | disposition home or self-care (01) | DRG 772 ==
LOC: YASAS 12:29 → Y5N 12:30 → Y3W 12:36
PROVIDERS: ADMIT Neuromusculoskeletal Medicine & OMM; ATTEND Neuromusculoskeletal Medicine & OMM
PROC: HZ42ZZZ Group Counseling for Substance Abuse Treatment, Cognitive-Behavioral (ICD-10-PCS; principal; 2019-04-03)
DX: F10.20 Alcohol dependence, uncomplicated (principal); F14.20 Cocaine dependence, uncomplicated; F17.210 Nicotine dependence, cigarettes, uncomplicated; E11.65 Type 2 diabetes mellitus with hyperglycemia; J45.909 Unspecified asthma, uncomplicated
CPT/HCPCS: 82962

== ENCOUNTER 2019-05-13 08:29 | Inpatient (IN) | payer OTHER ==
[2019-05-13 09:39] VITALS: BP 119/74; PULSE 85; BMI 33.5
--- NOTE | 2019-05-13 10:28 | HP ---
CIWA Score Nausea/Vomitin-Mild Nausea/No Vomiting Muscle Tremors: 1-None Visible, but [place] Anxiety: 1-Mildly Anxious Agitation: 1-Slight > Activity Paroxysmal Sweats: 1-Minimal Palms Moist Orientation: 0-Oriented Tacttile Disturbances: 1-Very Mild Itch/Numbness Auditory Disturbances: 0-None (not appropriate for detox but wants to enter rehab) Visual Disturbances: 1-Very Mild Sensitivity Headache: 1-Very Mild CIWA-Ar Total Score: 8 - Admission Criteria OASAS Guidelines: Admission for Medically Managed Detox: Requires at least one of the followin. CIWA greater than 12 2. Seizures within the past 24 hours 3. Delirium tremens within the past 24 hours 4. Hallucinations within the past 24 hours 5. Acute intervention needed for co occurring medical disorder 6. Acute intervention needed for co occurring psychiatric disorder 7. Severe withdrawal that cannot be handled at a lower level of care (continued vomiting, continued diarrhea, abnormal vital signs) requiring intravenous medication and/or fluids 8. Admission [facility] Chief Complaint: "I want to stop using drugs?" "I want to be sober and clean and I can move forward and start using." Allergies/Adverse Reactions: Allergies Allergy/AdvReac Type Severity Reaction Status Date / Time No Known Allergies Allergy Verified 05/13/19 09:29 History of Present Illness: 39 years old black male with history of alcohol dependence, last admitted to [facility] for detox in March and completed but did not proceed to rehab. He relapsed thereafter. He is using up to 4 pints of vodka per day, last drank last night but breathalyzer is 0.00 now. He also admits to use $10 per day , started at age 15 He is also admits to using marijuana $5 every other day, started at age 14. He smokes cigarettes 60 per day, started at age 14 He has no prior history of seizure. He hasn't had any blackouts from over drinking. PMH: DM on no meds, Asthma on Albuterol MDI and Advair 250/50 twice daily and well controlled; swollen feet. Eczema on topical steroids PsurgHx: None He denies any pending legal issues. Exam Limitations: No Limitations - Ebola screening Have you traveled outside of the country in the last 21 days: No Have you had contact with anyone from an Ebola affected area: No Have you been sick,other than usual withdrawal symptoms: No Do you have a fever: No - Review of Systems Constitutional: Chills EENT: reports: No Symptoms Reported Respiratory: reports: Cough (occasional) Cardiac: reports: No Symptoms Reported GI: reports: Diarrhea, Nausea : reports: No Symptoms Reported Musculoskeletal: reports: Other (swelling slightly in feet) Integumentary: reports: Rash (eczema) Neuro: reports: No Symptoms reported, Tingling (lower extremities tingling R>L) Endocrine: reports: No Symptoms Reported Hematology: reports: No Symptoms Reported Psychiatric: reports: No Sypmtoms Reported Other Systems: Reviewed and Negative Patient History - Patient Medical History Hx Anemia: No Hx Asthma: Yes (ADVAIR) Hx Chronic Obstructive Pulmonary Disease (COPD): No Hx Cancer: No Hx Cardiac Disorders: No Hx Congestive Heart Failure: No Hx Hypertension: No Hx Hypercholesterolemia: No Hx Pacemaker: No HX Cerebrovascular Accident: No Hx Seizures: No Hx Dementia: No Hx Diabetes: Yes (has had hyperglycemia) Hx Gastrointestinal Disorders: No Hx Liver Disease: No Hx Genitourinary Disorders: No Hx Sexually Transmitted Disorders: No Hx Renal Disease (ESRD): No Hx Thyroid Disease: No Hx Human Immunodeficiency Virus (HIV): No Hx Hepatitis C: No Hx Depression: No Hx Suicide Attempt: No Hx Bipolar Disorder: No Hx Schizophrenia: No - Patient Surgical History Past Surgical History: No Hx Neurologic Surgery: No Hx Cataract Extraction: No Hx Cardiac Surgery: No Hx Lung Surgery: No Hx Breast Surgery: No Hx Breast Biopsy: No Hx Abdominal Surgery: No Hx Appendectomy: No Hx Cholecystectomy: No Hx Genitourinary Surgery: No Hx Section: No Hx Orthopedic Surgery: No Anesthesia Reaction: No - PPD History Previous Implant?: Yes Documented Results: Negative w/proof Implanted On Prior R Admission?: Yes Date: 01/21/19 Results: 0MM PPD to be Administered?: No - Reproductive History Patient is a Female of Child Bearing Age (11 -55 yrs old): No - Smoking Cessation Smoking history: Current every day smoker Have you smoked in the past 12 months: No Aproximately how many cigarettes per day: 60 Cigars Per Day: 0 Hx Chewing Tobacco Use: No Initiated information on smoking cessation: Yes 'Breaking Loose' booklet given: 05/13/19 - Substance & Tx. History Hx Alcohol Use: Yes (up to 4 pints of vodka) Substance Use Type: Cocaine, Marijuana Hx Substance Use Treatment: Yes - Substances abused Alcohol Substance route: Oral Frequency: Daily Amount used: 4 PINTS VODKA Age of first use: 14 Date of last use: 05/12/19 Cocaine Substance route: Inhalation Frequency: Daily Amount used: 1/2 bag Age of first use: 14 Date of last use: 05/12/19 Marijuana/Hashish Substance route: Smoking Frequency: Daily Amount used: $10 Age of first use: 14 Date of last use: 05/13/19 Alprazolam (Xanax) Substance route: Oral Frequency: Daily Amount used: 2mg Age of first use: 14 Date of last use: 05/13/19 Family Disease History - Family Disease History Family Disease History: Other: Mother (ALCOHOLISM) Admission Physical Exam BHS - Vital Signs Vital Signs: Vital Signs - 24 hr 05/13/19 09:28 Temperature 98.0 F Pulse Rate 85 Respiratory 16 Rate Blood Pressure 119/74 - Physical General Appearance: Yes: Anxious HEENTM: Yes: EOMI, Hearing grossly Normal, Normocephalic, Normal Voice, LOR, Pharynx Normal Respiratory: Yes: Lungs Clear, No Respiratory Distress, No Accessory Muscle Use Neck: Yes: No masses,lesions,Nodules, Supple, Trachea in good position Breast: Yes: Breast Exam Deferred Cardiology: Yes: Regular Rhythm, Regular Rate, S1, S2 Abdominal: Yes: Normal Bowel Sounds, Non Tender, Soft, Protuberent Genitourinary: Yes: Within Normal Limits Back: Yes: Normal Inspection Musculoskeletal: Yes: full range of Motion, Gait Steady Extremities: Yes: Normal Capillary Refill, Normal Inspection, Normal Range of Motion, Non-Tender Neurological: Yes: 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 II-XII NML intact, Fully Oriented, Alert, Motor Strength 5/5, Normal Response, Depressed Affect Integumentary: Yes: Dry, Warm Lymphatic: Yes: Within Normal Limits - Diagnostic (1) Alcohol dependence with uncomplicated withdrawal Current Visit: Yes Status: Acute (2) Hyperglycemia Current Visit: Yes Status: Acute (3) Nicotine dependence Current Visit: Yes Status: Acute Qualifiers: Nicotine product type: cigarettes Substance use status: in withdrawal Qualified Code(s): F17.213 - Nicotine dependence, cigarettes, with withdrawal (4) Asthma Current Visit: Yes Status: Chronic Qualifiers: Asthma severity: mild Asthma persistence: intermittent Asthma complication type: uncomplicated Qualified Code(s): J45.20 - Mild intermittent asthma, uncomplicated (5) Cannabis dependence, uncomplicated Current Visit: Yes Status: Chronic (6) Cocaine dependence, uncomplicated Current Visit: Yes Status: Chronic (7) Diabetes mellitus type II, uncontrolled Current Visit: Yes Status: Chronic Qualifiers: Glycemic state: with hyperglycemia Qualified Code(s): E11.65 - Type 2 diabetes mellitus with hyperglycemia Cleared for Admission [facility] - Detox or Rehab [facility] Level of Care: Medically Managed Screened but not Admitted - Documentation of Visit Screened but not Admitted: No Breathalyzer - Breathalyzer Breathalyzer: 0 (drank one night ago) Vital Signs - Vital Signs Vital signs refused: No Temperature: 98 F Temperature source: Oral Pulse Rate: 85 Respiratory Rate: 16 Blood Pressure: 119/74 BP Location: Left Arm Blood Pressure position: Supine - Height Height: 6 ft 1 in - Weight Weight: 254 lb Weight measurement method: Standing scale - BMI Body Mass Index (BMI): 33.5 - Bowel Function Bowel Movement: No Urine Drug Screen - Test Device Lot number: [id number] Expiration date: 11/22/20 - Control Is test valid?: Yes - Results Drug screen NEGATIVE: No Urine drug screen results: THC-Marijuana, JOSE-Cocaine, BZO-Benzodiazepines Inpatient Rehab Admission - Rehab Decision to Admit Inpatient rehab admission?: Yes - Initial Determination Are CD services needed?: Yes Free of communicable disease: Yes Not in need of hospitalization: Yes - Rehab Admission Criteria Previous failed treatment: Yes Poor recovery environment: Yes Comorbidities: Yes Lacks judgement: Yes Patient is meeting Inpatient Rehab admission criteria:: Yes
[2019-05-13 10:41] VITALS: TEMP 98
[2019-05-13] MEDS ORDERED: LOPERAMIDE HCL 2 MG CAPSULE PO PRN (10:45)
[2019-05-13] MEDS ORDERED: MENTHOL/PHENOL 1 EACH UD MM PRN (10:45)
[2019-05-13] MEDS ORDERED: IBUPROFEN 400 MG TABLET (FP) PO PRN (10:45)
[2019-05-13] MEDS ORDERED: MAG HYDROX/AL HYDROX/SIMETH 30 ML UNIT-DOSE CUP PO PRN (10:45)
[2019-05-13] MEDS ORDERED: MAGNESIUM HYDROX 2400MG/30ML ORAL SUSPENSION 30 ML CUP PO PRN (10:45)
[2019-05-13] MEDS ORDERED: guaiFENesin 200 MG/10 ML 10 ML UNIT-DOSE CUPS PO PRN (10:45)
[2019-05-13] MEDS ORDERED: MAGNESIUM CITRATE 300 ML BOTTLE PO PRN (10:45)
[2019-05-13] MEDS ORDERED: ACETAMINOPHEN 325 MG TABLET (FP) PO PRN (10:45)
[2019-05-13] MEDS ORDERED: P-EPHED 60MG/TRIPROLIDI 2.5MG TABLET PO PRN (10:45)
[2019-05-13] MEDS ORDERED: ALBUTEROL SO4 8 GM HFA INHALER IH PRN (10:48)
[2019-05-13] MEDS: NICOTINE 21 MG/24 HOURS TOPICAL PATCH TD SCH (13:04)
[2019-05-13] MEDS: BUDESONIDE/FORMETEROL FUMARATE 80/4.5 mcg INHALER IH SCH ×2 (14:48→22:03)
[2019-05-13 15:35] LABS: HEMATOCRIT 38.8 % (35.4-49); HEMOGLOBIN 12.5 GM/dL (11.7-16.9); MCH 28.5 pg (25.7-33.7); MCHC 32.4 g/dl (32.0-35.9); MEAN CELL VOLUME 88.1 fl (80-96); MEAN PLT VOLUME 12.3 fl (7.5-11.1); PLATELET COUNT 228 K/MM3 (134-434); RDW 12.5 % (11.9-15.9); WHITE BLOOD COUNT 7.7 K/mm3 (4.0-10.0)
[2019-05-13 15:44] LABS: ALBUMIN 3.8 g/dl (3.4-5.0); BILIRUBIN,TOTAL 0.9 mg/dL (0.2-1); BLOOD UREA NITROGEN 12.8 mg/dL (7-18); CALCIUM 9.1 mg/dL (8.5-10.1); CREATININE 1.2 mg/dL (0.55-1.3); POTASSIUM 3.5 mmol/L (3.5-5.1); TOT PROT 6.9 g/dl (6.4-8.2)
[2019-05-13] MEDS ORDERED: MELATONIN 5 MG TABLETS PO PRN (22:00)
[2019-05-13] MEDS: THIAMINE HCL 100 MG TABLET (FP) PO SCH (22:03)
[2019-05-14] MEDS: PRENATAL VITAMINS W/ FOLIC ACID TABLET (FP) PO SCH (11:13)
[2019-05-14] MEDS: BUDESONIDE/FORMETEROL FUMARATE 80/4.5 mcg INHALER IH SCH ×2 (11:13→22:05)
[2019-05-14] MEDS: NICOTINE 21 MG/24 HOURS TOPICAL PATCH TD SCH (11:13)
[2019-05-14] MEDS ORDERED: COLLOIDAL OATMEAL 1 BAR EACH TP PRN (12:41)
[2019-05-14] MEDS: THIAMINE HCL 100 MG TABLET (FP) PO SCH (22:05)
--- NOTE | 2019-05-15 09:35 | PN ---
[facility] Progress Note Note: Vital Signs Temperature 98 F 05/13/19 10:43 Pulse Rate 85 05/13/19 10:43 Respiratory Rate 20 05/15/19 03:30 Blood Pressure 119/74 05/13/19 10:43 O2 Sat by Pulse Oximetry (%) Laboratory Tests 05/13/19 05/13/19 05/13/19 10:40 10:40 10:41 WBC 7.7 RBC 4.40 Hgb 12.5 Hct 38.8 MCV 88.1 MCH 28.5 MCHC 32.4 RDW 12.5 Plt Count 228 MPV 12.3 H Sodium 143 Potassium 3.5 Chloride 110 H Carbon Dioxide 25 Anion Gap 7 L BUN 12.8 Creatinine 1.2 Est GFR (CKD-EPI)AfAm 87.14 Est GFR (CKD-EPI)NonAf 75.19 POC Glucometer Random Glucose 125 H Calcium 9.1 Total Bilirubin 0.9 AST 19 ALT 36 Alkaline Phosphatase 49 Total Protein 6.9 Albumin 3.8 RPR Titer Nonreactive 05/13/19 11:24 WBC RBC Hgb Hct MCV MCH MCHC RDW Plt Count MPV Sodium Potassium Chloride Carbon Dioxide Anion Gap BUN Creatinine Est GFR (CKD-EPI)AfAm Est GFR (CKD-EPI)NonAf POC Glucometer 126 Random Glucose Calcium Total Bilirubin AST ALT Alkaline Phosphatase Total Protein Albumin RPR Titer Labs reviewed, patient stable. Follow up with PCP upon discharge Continue to monitor
[2019-05-15] MEDS: PRENATAL VITAMINS W/ FOLIC ACID TABLET (FP) PO SCH (10:38)
[2019-05-15] MEDS: BUDESONIDE/FORMETEROL FUMARATE 80/4.5 mcg INHALER IH SCH (10:38)
[2019-05-15] MEDS: NICOTINE 21 MG/24 HOURS TOPICAL PATCH TD SCH (10:38)
== END 2019-05-15 12:35 | disposition left against medical advice (07) | DRG 774 ==
LOC: YASAS 08:29 → Y5N 11:30 → Y3W 05-14 13:37
PROVIDERS: ADMIT Neuromusculoskeletal Medicine & OMM; ATTEND Neuromusculoskeletal Medicine & OMM
PROC: HZ2ZZZZ Detoxification Services for Substance Abuse Treatment (ICD-10-PCS; principal; 2019-05-13)
DX: F10.230 Alcohol dependence with withdrawal, uncomplicated (principal); F14.20 Cocaine dependence, uncomplicated; F12.20 Cannabis dependence, uncomplicated; F17.213 Nicotine dependence, cigarettes, with withdrawal; F91.8 Other conduct disorders; J45.20 Mild intermittent asthma, uncomplicated; E11.65 Type 2 diabetes mellitus with hyperglycemia
CPT/HCPCS: 36415; 80053; 82962; 85027; 86593

== ENCOUNTER 2019-08-21 15:37 | Inpatient (IN) | payer OTHER ==
[2019-08-21 16:55] VITALS: BP 137/82; PULSE 92; TEMP 98.5; BMI 33.2
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
[2019-08-21] MEDS ORDERED: LOPERAMIDE HCL 2 MG CAPSULE PO PRN (17:37)
[2019-08-21] MEDS ORDERED: guaiFENesin 200 MG/10 ML 10 ML UNIT-DOSE CUPS PO PRN (17:37)
[2019-08-21] MEDS ORDERED: IBUPROFEN 400 MG TABLET (FP) PO PRN (17:37)
[2019-08-21] MEDS ORDERED: P-EPHED 60MG/TRIPROLIDI 2.5MG TABLET PO PRN (17:37)
[2019-08-21] MEDS ORDERED: MAG HYDROX/AL HYDROX/SIMETH 30 ML UNIT-DOSE CUP PO PRN (17:37)
[2019-08-21] MEDS ORDERED: ACETAMINOPHEN 325 MG TABLET (FP) PO PRN (17:37)
[2019-08-21] MEDS ORDERED: NICOTINE POLACRILEX 2 MG GUM BC PRN (17:37)
[2019-08-21] MEDS ORDERED: MAGNESIUM HYDROX 2400MG/30ML ORAL SUSPENSION 30 ML CUP PO PRN (17:37)
[2019-08-21] MEDS ORDERED: MENTHOL/PHENOL 1 EACH UD MM PRN (17:37)
[2019-08-21] MEDS ORDERED: MAGNESIUM CITRATE 300 ML BOTTLE PO PRN (17:37)
[2019-08-21] MEDS ORDERED: COLLOIDAL OATMEAL 1 BAR EACH TP PRN (17:38)
[2019-08-21] MEDS: THIAMINE HCL 100 MG TABLET (FP) PO SCH (21:32)
[2019-08-21] MEDS: CLOTRIMAZOLE 1% CREAM 15 GM TUBE TP SCH (21:32)
[2019-08-21] MEDS ORDERED: MELATONIN 5 MG TABLETS PO PRN (22:00)
[2019-08-22] MEDS ORDERED: PRENATAL VITAMINS W/ FOLIC ACID TABLET (FP) PO SCH (10:00)
[2019-08-22] MEDS: CLOTRIMAZOLE 1% CREAM 15 GM TUBE TP SCH ×2 (10:42→21:22)
[2019-08-22] MEDS: THIAMINE HCL 100 MG TABLET (FP) PO SCH (21:22)
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
== END 2019-08-23 10:22 | disposition left against medical advice (07) | DRG 772 ==
LOC: YASAS 15:37 → Y3W 18:10
PROVIDERS: ADMIT Neuromusculoskeletal Medicine & OMM; ATTEND Allergy & Immunology
PROC: HZ42ZZZ Group Counseling for Substance Abuse Treatment, Cognitive-Behavioral (ICD-10-PCS; principal; 2019-08-21)
DX: F10.20 Alcohol dependence, uncomplicated (principal); F13.20 Sedative, hypnotic or anxiolytic dependence, uncomplicated; F14.20 Cocaine dependence, uncomplicated; F12.20 Cannabis dependence, uncomplicated; F17.210 Nicotine dependence, cigarettes, uncomplicated; R73.03 Prediabetes; F91.8 Other conduct disorders

== ENCOUNTER 2020-11-10 12:18 | Inpatient (IN) | payer OTHER ==
[2020-11-10] MEDS ORDERED: MAGNESIUM HYDROX 2400MG/30ML ORAL SUSPENSION 30 ML CUP PO PRN (15:20)
[2020-11-10] MEDS ORDERED: ONDANSETRON *ODT* 4 MG TABLET SL PRN (15:20)
[2020-11-10] MEDS ORDERED: MAGNESIUM CITRATE 300 ML BOTTLE PO PRN (15:20)
[2020-11-10] MEDS ORDERED: METHOCARBAMOL 500 MG TABLET PO PRN (15:20)
[2020-11-10] MEDS ORDERED: ACETAMINOPHEN 325 MG TABLET (FP) PO PRN (15:20)
[2020-11-10] MEDS ORDERED: MENTHOL/PHENOL 1 EACH UD MM PRN (15:20)
[2020-11-10] MEDS ORDERED: BISMUTH SUBSALICYLATE 524 MG/30 ML UD PO PRN (15:20)
[2020-11-10] MEDS ORDERED: chlordiazePOXIDE HCL 25 MG CAPSULE PO PRN (15:20)
[2020-11-10] MEDS ORDERED: IBUPROFEN 400 MG TABLET (FP) PO PRN (15:20)
[2020-11-10] MEDS ORDERED: MAG HYDROX/AL HYDROX/SIMETH 30 ML UNIT-DOSE CUP PO PRN (15:20)
[2020-11-10] MEDS ORDERED: ALBUTEROL SO4 HFA INHALER IH PRN (15:24)
[2020-11-10 17:37] VITALS: BMI 33.5
[2020-11-10] MEDS: hydrOXYzine PAMOATE 25 MG CAPSULE (FP) PO SCH ×2 (18:13→22:46)
[2020-11-10] MEDS: PRENATAL VITAMINS W/ FOLIC ACID TABLET (FP) PO SCH (18:13)
[2020-11-10] MEDS: chlordiazePOXIDE HCL 25 MG CAPSULE PO SCH ×3 (18:13→23:48)
[2020-11-10] MEDS: MELATONIN 5 MG TABLETS PO SCH (22:46)
[2020-11-10] MEDS: BUDESONIDE/FORMETEROL FUMARATE 80/4.5 mcg INHALER IH SCH (22:46)
[2020-11-10] MEDS: THIAMINE HCL 100 MG TABLET (FP) PO SCH (22:46)
[2020-11-10] MEDS: INSULIN SLIDING SCALE (NOVOLOG) 1 VIAL SQ SCH (22:46)
[2020-11-11] MEDS: INSULIN SLIDING SCALE (NOVOLOG) 1 VIAL SQ SCH ×5 (00:03→22:47)
[2020-11-11] MEDS: chlordiazePOXIDE HCL 25 MG CAPSULE PO SCH ×4 (07:06→22:46)
[2020-11-11] MEDS: hydrOXYzine PAMOATE 25 MG CAPSULE (FP) PO SCH ×5 (07:06→22:47)
[2020-11-11] MEDS: PRENATAL VITAMINS W/ FOLIC ACID TABLET (FP) PO SCH (10:17)
[2020-11-11] MEDS: BUDESONIDE/FORMETEROL FUMARATE 80/4.5 mcg INHALER IH SCH ×2 (10:21→22:47)
[2020-11-11] MEDS ORDERED: metFORMIN HCL 500 MG TABLET (FP) PO SCH (16:30)
[2020-11-11] MEDS: THIAMINE HCL 100 MG TABLET (FP) PO SCH (22:47)
[2020-11-11] MEDS: MELATONIN 5 MG TABLETS PO SCH (22:47)
[2020-11-12] MEDS ORDERED: chlordiazePOXIDE HCL 25 MG CAPSULE PO SCH (05:00)
[2020-11-12 07:28] VITALS: BP 90/46; PULSE 65; TEMP 97.5
[2020-11-12] MEDS: hydrOXYzine PAMOATE 25 MG CAPSULE (FP) PO SCH (08:31)
[2020-11-13] MEDS ORDERED: chlordiazePOXIDE HCL 10 MG CAPSULE PO PRN
[2020-11-13] MEDS ORDERED: chlordiazePOXIDE HCL 10 MG CAPSULE PO SCH (05:00)
[2020-11-14] MEDS ORDERED: chlordiazePOXIDE HCL 10 MG CAPSULE PO SCH (05:00)
[2020-11-15] MEDS ORDERED: chlordiazePOXIDE HCL 10 MG CAPSULE PO ONE (05:00)
== END 2020-11-12 08:12 | disposition left against medical advice (07) | DRG 770 ==
LOC: YASAS 12:18 → Y3N 16:55 → UNDOADMIN 16:55 → Y3N 17:04
PROVIDERS: ADMIT Allergy & Immunology; ATTEND Allergy & Immunology
PROC: HZ2ZZZZ Detoxification Services for Substance Abuse Treatment (ICD-10-PCS; principal; 2020-11-10)
DX: F10.230 Alcohol dependence with withdrawal, uncomplicated (principal); F12.20 Cannabis dependence, uncomplicated; F17.210 Nicotine dependence, cigarettes, uncomplicated; E11.65 Type 2 diabetes mellitus with hyperglycemia; Z79.84 Long term (current) use of oral hypoglycemic drugs; J45.20 Mild intermittent asthma, uncomplicated; R45.4 Irritability and anger
CPT/HCPCS: 82962; C9803; U0003